=== PATIENT | male | born 1960 | race Two or more races ===

== ENCOUNTER → 2016-07-11 | Outpatient (CLI) | payer MEDICARE ==
[~2016-07-11] MED LIST: ALDACTONE100 MG ORAL; FEOSOL325 MG PO; FOLIC ACID1 MG ORAL; FUROSEMIDE40 MG ORAL; GLIMEPIRIDE1 MG ORAL; HEPARIN 5000 UNIT; INDERAL10 MG PO; JANUMET 50-1,01 EACH ORAL; LACTULOSE20 GM/301 PO; MULTIVITAMINS1 EAC2 ORAL; OXYCODONE-IBUP1 EACH ORAL; PROPRANOLOL HCL10 MG ORAL; SPIRONOLACTONE100 MG ORAL; VITAMIN B-1100 MG ORAL; XIFAXAN550 MG ORAL; ZOFRAN4 MG ORAL
--- NOTE | 2016-07-11 14:50 | GI Progress Note ---
Assessment/Plan Problems: (1) Cirrhosis ICD Codes: K74.60 - Cirrhosis SNOMED: 73635072 (2) Ascites ICD Codes: R18.8 - Ascites SNOMED: 408033025 (3) Anemia ICD Codes: D64.9 - Anemia SNOMED: 939986909 (4) Varices of esophagus determined by endoscopy ICD Codes: I85.00 - Esophageal varices without bleeding SNOMED: 61031688, 941630737 (5) Vitatmin D deficiency (6) Elevated ammonia Status: doing well, stable Status Narrative Seen with Dr. Mendez. Assessment/Plan lab results from Dr. Lundy reviewed. ordered abdominal U/S 07/17/16 RTC post imaging study Subjective Subjective denies any GI symptoms Objective T 98.1 BP 118/78 P75 WT 182 lbs Weight (Pounds): 182 General Appearance: no apparent distress, alert Cardiovascular: regular rhythm Respiratory/Chest: no respiratory distress Abdominal Exam: normal bowel sounds, non tender, soft Extremities: normal range of motion Objective Endoscopy Procedure Note Indication for Procedure: esoph varices Procedures Performed: EGD Operative Findings/Diagnosis: sabinotiiJOSHUA Bergman - Mar 01, 2016 09:01 Arabella Ferrari N.P. Jul 11, 2016 14:50
[2016-07-11 15:29] VITALS: BP 118/78
== END | disposition home or self-care (01) ==
LOC: PAN 14:13
DX: K74.60 Unspecified cirrhosis of liver (principal); R18.8 Other ascites; D64.9 Anemia, unspecified; I85.00 Esophageal varices without bleeding; E55.9 Vitamin D deficiency, unspecified
CPT/HCPCS: 99211

== ENCOUNTER → 2016-07-17 | Outpatient (CLI) | payer MEDICARE ==
--- NOTE | 2016-07-17 13:48 | Diagnostic Imaging Report ---
Indication:Abdominal pain Technique: Grayscale and duplex Doppler imaging of the abdomen performed. Comparison: None Findings: There are multiple gallstones within the gallbladder lumen. Sonographic Pacheco's is negative per technologist. The liver has a somewhat coarsened echotexture. The demonstrated part of the pancreas, aorta and IVC, both kidneys, spleen appear unremarkable. There is no biliary ductal dilatation identified. Doppler evaluation of the main portal vein shows patency. There is no ascites. No hydronephrosis seen. Impression: Cholelithiasis
== END | disposition home or self-care (01) ==
LOC: ULS 10:01
DX: K80.20 Calculus of gallbladder without cholecystitis without obstruction (principal)
CPT/HCPCS: 76700

== ENCOUNTER 2016-12-24 10:01 | Outpatient (CLI) | payer MEDICARE ==
[2016-12-24 10:26] VITALS: BP 138/85
--- NOTE | 2016-12-24 10:48 | GI Progress Note ---
Assessment/Plan Problems: (1) Obesity ICD Codes: E66.9 - Obesity, unspecified SNOMED: 776710607 (2) Gall stone ICD Codes: K80.20 - Calculus of gallbladder without cholecystitis without obstruction SNOMED: 105447645 (3) Varices of esophagus determined by endoscopy ICD Codes: I85.00 - Esophageal varices without bleeding SNOMED: 41715572, 883164217 (4) Cirrhosis ICD Codes: K74.60 - Cirrhosis SNOMED: 47930823 (5) Ascites ICD Codes: R18.8 - Ascites SNOMED: 564879999 (6) Anemia ICD Codes: D64.9 - Anemia SNOMED: 519522964 (7) H/O ETOH abuse ICD Codes: F10.10 - H/O ETOH abuse SNOMED: 657805134 Status: stable Status Narrative Seen with Dr. Mendez. Assessment/Plan Endoscopy Procedure Note Indication for Procedure: esoph varices Procedures Performed: EGD Operative Findings/Diagnosis: gastritis JOSHUA MENDEZ - Mar 01, 2016 09:01 Service Date: 07/17/16 Procedure: US ABD Complete Indication:Abdominal pain Impression: Cholelithiasis RTC x 6 months for repeat EGD. Instructed patient to lose 10 lbs by next visit. Subjective Subjective No GI symptoms at this time. Labs drawn in September. abdominal U/S showed gallstones Objective Last 24 Hour Vital Signs Date Time Temp Pulse Resp B/P Pulse Ox O2 Delivery O2 Flow Rate FiO2 12/24/16 10:26 98.0 85 16 138/85 Weight (Pounds): 191 General Appearance: no apparent distress, alert, obese Cardiovascular: normal rate, regular rhythm Respiratory/Chest: lungs clear, normal breath sounds, no respiratory distress Abdominal Exam: normal bowel sounds, non tender, soft Extremities: normal range of motion, non-tender Arabella Ferrari N.P. Dec 24, 2016 10:48
== END 2016-12-24 10:45 | disposition home or self-care (01) ==
LOC: PAN 10:01
DX: E66.9 Obesity, unspecified (principal); K80.20 Calculus of gallbladder without cholecystitis without obstruction; I85.00 Esophageal varices without bleeding; K74.60 Unspecified cirrhosis of liver; R18.8 Other ascites; D64.9 Anemia, unspecified; F10.10 Alcohol abuse, uncomplicated
CPT/HCPCS: 99211

== ENCOUNTER 2017-01-11 14:17 | Inpatient (IN) | payer MEDICARE ==
[~2017-01-11] VITALS: Ht 165.1 cm; Wt 83.9 kg
[2017-01-11 14:42] VITALS: BP 134/87
[2017-01-11] MEDS ORDERED: Famotidine 20 MG/ 2ML VIAL IVP ONE (15:00)
--- NOTE | 2017-01-11 15:09 | Emergency Room Report ---
History of Present Illness General Chief Complaint: Abdominal Pain Source: Patient Present Illness HPI The patient presents unable to keep anything down. He's been vomiting for several days of. He vomits whatever he some denies any blood or coffee grounds. He also is moving her his bowels with brown stool but very scant amount. He denies any diarrhea. This began after he had some alcohol 4 days ago at a green party. He denies confusion or fevers. There's no chest pain. He does have an indigestion feelings in his epigastric area it radiates somewhat into his chest. He also feels fullness in his abdomen and has early satiety and loss of appetite. He denies any dysuria. There's no shortness of breath or cough. No sore throat. He has no headache or confusion. He denies pain. Prior ultrasounds show gall stones. There is no RUQ pain. Treated in the past for ascites and cirrhosis. No rashes. Allergies: Coded Allergies: No Known Allergies (Unverified , 10/20/12) Patient History Past Medical History: see triage record Social History: Reports: alcohol use - Prior, Denies: smoking Social History Narrative family Reviewed Nursing Documentation: PMH: Agreed, PSxH: Agreed Nursing Documentation-PMH Hx Cardiac Problems: No Hx Diabetes: Yes Hx Cancer: No Hx Gastrointestinal Problems: Yes Hx Neurological Problems: No Review of Systems All Other Systems: negative except mentioned in HPI Physical Exam Vital Signs Date Time Temp Pulse Resp B/P (MAP) Pulse Ox O2 Delivery O2 Flow Rate FiO2 01/11/17 14:31 100.0 92 15 135/84 99 Room Air Sp02 EP Interpretation: reviewed, normal General Appearance: well appearing, no apparent distress, GCS 15 Head: normocephalic Eyes: bilateral eye normal inspection, bilateral eye PERRL, bilateral eye other - Pterygium ENT: moist mucus membranes Neck: supple Respiratory: lungs clear, normal breath sounds Cardiovascular #1: regular rate, rhythm Cardiovascular #2: 2+ radial (R) Gastrointestinal: normal inspection, normal bowel sounds, no mass, no guarding , no rebound, distended, tenderness - Epigastric Musculoskeletal: back normal, gait/station normal, normal range of motion Neurologic: alert, oriented x3, other - No asterixis Psychiatric: mood/affect normal Skin: normal inspection, warm/dry, other - No collar Medical Decision Making Diagnostic Impression: Primary Impression: Pancreatitis Qualified Codes: K85.20 - Alcohol induced acute pancreatitis without necrosis or infection Additional Impressions: Cirrhosis Qualified Codes: K70.30 - Alcoholic cirrhosis of liver without ascites Gallstones ER Course The patient presents with unable to keep anything down and abdominal fullness with epigastric discomfort. Differential includes ascites, gastritis, GERD, peptic ulcer disease, pancreatitis amongst others. Also we need to evaluate for possible electrolyte imbalance. There is no fluid wave at this time although abdomen slightly distended. It's a nonsurgical abdomen. The patient will receive IV medications however we will refrain from aggressive IV hydration because he has a tendency to develop ascites. He's not tachycardic nor toxic at this time. An EKG will be checked to rule out cardiac cause. There is no evidence of hepatic encephalopathy at this time however ammonia will be checked. Labs are significant for normal white count and H&H. Lipase is extremely elevated. This is consistent with a diagnosis of pancreatitis. The patient denies any pain at this time however needs to be admitted to the hospital. In addition to that and ultrasound will be obtained. No coagulopathy. Bicarb and calcium normal. US without gall bladder dilatation or pericolic fluid. Not surgical problem. Most likely related to recent alcohol ingestion. Patient improved. Denies pain. Still with full feeling in abdomen. Admit med Dr. Lundy. Laboratory Tests Test 01/11/17 15:13 White Blood Count 5.4 K/UL (4.8-10.8) Red Blood Count 4.16 M/UL (4.70-6.10) L Hemoglobin 14.6 G/DL (14.2-18.0) Hematocrit 41.3 % (42.0-52.0) L Mean Corpuscular Volume 99 FL (80-99) Mean Corpuscular Hemoglobin 35.1 PG (27.0-31.0) H Mean Corpuscular Hemoglobin Concent 35.4 G/DL (32.0-36.0) Red Cell Distribution Width 12.4 % (11.6-14.8) Platelet Count 146 K/UL (150-450) L Mean Platelet Volume 9.2 FL (6.5-10.1) Neutrophils (%) (Auto) 83.6 % (45.0-75.0) H Lymphocytes (%) (Auto) 7.8 % (20.0-45.0) L Monocytes (%) (Auto) 7.3 % (1.0-10.0) Eosinophils (%) (Auto) 0.2 % (0.0-3.0) Basophils (%) (Auto) 1.2 % (0.0-2.0) Prothrombin Time 10.6 SEC (9.30-11.50) Prothrombin Time INR 1.0 (0.9-1.1) Urine Color Yellow Urine Appearance Clear Urine pH 7 (4.5-8.0) Urine Specific [place] 1.005 (1.005-1.035) Urine Protein 1+ (NEGATIVE) H Urine Glucose (UA) Negative (NEGATIVE) Urine Ketones Negative (NEGATIVE) Urine Occult Blood Negative (NEGATIVE) Urine Nitrite Negative (NEGATIVE) Urine Bilirubin 2+ (NEGATIVE) H Urine Ictotest Positive Urine Urobilinogen 4 MG/DL (0.0-1.0) H Urine Leukocyte Esterase 1+ (NEGATIVE) H Urine RBC 0-2 /HPF (0 - 0) H Urine WBC 0-2 /HPF (0 - 0) Urine Squamous Epithelial Cells None /LPF (NONE/OCC) Urine Bacteria Occasional /HPF (NONE) Sodium Level 131 mEQ/L (135-145) L Potassium Level 4.3 mEQ/L (3.4-4.9) Chloride Level 95 mEQ/L (98-107) L Carbon Dioxide Level 24 mEQ/L (20-30) Anion Gap 12 (5-15) Blood Urea Nitrogen 8 mg/dL (7-23) Creatinine 0.7 mg/dL (0.7-1.2) Estimate Glomerular Filtration Rate > 60 mL/min (>60) Glucose Level 231 mg/dL (74-106) H Calcium Level 10.0 mg/dL (8.6-10.2) Total Bilirubin 6.2 mg/dL (0.0-1.2) H Direct Bilirubin 4.2 mg/dL (0.1-0.3) H Aspartate Amino Transferase (AST) 139 U/L (5-40) H Alanine Aminotransferase (ALT) 79 U/L (3-41) H Alkaline Phosphatase 206 U/L (40-129) H Ammonia 49 umol/L (16-60) Total Creatine Kinase 50 U/L (38-174) Total Protein 8.1 g/dL (6.6-8.7) Albumin 3.5 g/dL (3.5-5.2) Globulin 4.6 g/dL Albumin/Globulin Ratio 0.7 (1.0-2.7) L Lipase 8130 U/L (< 60) H EKG Diagnostic Results Rate: normal Rhythm: NSR ST Segments: no acute changes Rhythm Strip Diag. Results EP Interpretation: yes Rhythm: NSR, no PVC's, no ectopy Chest X-Ray Diagnostic Results Chest X-Ray Diagnostic Results : Chest X-Ray Ordered: Yes # of Views/Limited/Complete: 1 View Indication: Other EP Interpretation: Yes Interpretation: no consolidation, no effusion, no pneumothorax, no acute cardiopulmonary disease Impression: No acute disease Interpreting ER Provider: Signed New Sepulveda MD Other X-Ray Diagnostic Results Other X-Ray Diagnostic Results : X-Ray ordered: abd # of Views/Limited Vs Complete: 2 View Indication: Other EP Interpretation: Yes Interpretation: nonspecific bowel gas, no sbo, other - RUQ calcifications Impression: Other Interpreting ER Provider: Signed New Sepulveda MD CT/MRI/US Diagnostic Results CT/MRI/US Diagnostic Results : Imaging Test Ordered: US abd Impression gall stones, thickened CBD without obstruction. Unable to vis pancreas Last Vital Signs Date Time Temp Pulse Resp B/P (MAP) Pulse Ox O2 Delivery O2 Flow Rate FiO2 01/11/17 22:10 99.5 73 18 130/84 98 Room Air 72 Status: improved Disposition: ADMITTED INPATIENT Condition: Serious New Sepulveda M.D. Jan 11, 2017 15:09
[2017-01-11 15:25] LABS: BASOPHILS % (AUTO) 1.2 % (0.0-2.0); EOSINOPHILS % (AUTO) 0.2 % (0.0-3.0); LYMPHOCYTES % (AUTO) 7.8 % (20.0-45.0); MEAN CORPUSCULAR HEMOGLOBIN 35.1 PG (27.0-31.0); MEAN CORPUSCULAR HGB CONC 35.4 G/DL (32.0-36.0); MEAN CORPUSCULAR VOLUME 99 FL (80-99); MEAN PLATELET VOLUME 9.2 FL (6.5-10.1); MONOCYTES % (AUTO) 7.3 % (1.0-10.0); NEUTROPHILS % (AUTO) 83.6 % (45.0-75.0); PLATELET COUNT 146 K/UL (150-450); RED BLOOD COUNT 4.16 M/UL (4.70-6.10); RED CELL DISTRIBUTION WIDTH 12.4 % (11.6-14.8); WHITE BLOOD COUNT 5.4 K/UL (4.8-10.8)
[2017-01-11 15:36] LABS: APPEARANCE,URINE CLEAR; KETONES,URINE NEGATIVE (NEGATIVE); LEUKOCYTE ESTERASE ,URINE 1+ (NEGATIVE); NITRITE,URINE NEGATIVE (NEGATIVE); PH,URINE 7 (4.5-8.0); PROTEIN,URINE 1+ (NEGATIVE); UROBILINOGEN,URINE 4 MG/DL (0.0-1.0)
[2017-01-11 15:38] LABS: PROTHROMBIN TIME 10.6 SEC (9.30-11.50)
[2017-01-11 15:39] LABS: ICTOTEST POSITIVE
[2017-01-11 15:40] LABS: AMMONIA 49 umol/L (16-60)
[2017-01-11 15:41] LABS: ALANINE AMINOTRANSFERASE 79 U/L (3-41); ALBUMIN/GLOBULIN RATIO 0.7 (1.0-2.7); ANION GAP 12 (5-15); ASPARTATE AMINO TRANSFERASE 139 U/L (5-40); CARBON DIOXIDE 24 mEQ/L (20-30); CHLORIDE 95 mEQ/L (98-107); CREATININE 0.7 mg/dL (0.7-1.2); GLOMERULAR FILTRATION RATE > 60 mL/min (>60); HEMOLYSIS 15; POTASSIUM 4.3 mEQ/L (3.4-4.9); SODIUM 131 mEQ/L (135-145); TOTAL PROTEIN 8.1 g/dL (6.6-8.7)
[2017-01-11 15:50] LABS: RBC,URINE 0-2 /HPF (0 - 0); WBC,URINE 0-2 /HPF (0 - 0)
[2017-01-11 15:51] LABS: BACTERIA,URINE OCCASIONAL /HPF
[2017-01-11 16:02] LABS: BILIRUBIN,DIRECT 4.2 mg/dL (0.1-0.3)
[2017-01-11 16:05] LABS: LIPASE 8130 U/L (< 60)
[2017-01-11 17:30] VITALS: BP 140/75
[2017-01-11] MEDS ORDERED: Morphine Sulfate 2mg/ml Inj IVP PRN (19:15)
[2017-01-11 20:00] VITALS: BP 130/70
[2017-01-11 21:00] VITALS: BP 130/84
[2017-01-11] MEDS: NS w/KCl 20mEq 1,000 ML IV SCH (21:59)
[2017-01-11 22:00] VITALS: BP 138/76
[2017-01-11] MEDS: Heparin 5000 units/ml inj SUBQ SCH (22:04)
[2017-01-12] VITALS (7 sets, daily range): BP systolic 120–155; BP diastolic 69–83
[2017-01-12 07:40] LABS: BASOPHILS % (AUTO) 1.1 % (0.0-2.0); EOSINOPHILS % (AUTO) 0.5 % (0.0-3.0); LYMPHOCYTES % (AUTO) 11.2 % (20.0-45.0); MEAN CORPUSCULAR HEMOGLOBIN 34.3 PG (27.0-31.0); MEAN CORPUSCULAR HGB CONC 33.9 G/DL (32.0-36.0); MEAN CORPUSCULAR VOLUME 101 FL (80-99); MEAN PLATELET VOLUME 9.6 FL (6.5-10.1); NEUTROPHILS % (AUTO) 77.3 % (45.0-75.0); PLATELET COUNT 151 K/UL (150-450); RED BLOOD COUNT 4.03 M/UL (4.70-6.10); RED CELL DISTRIBUTION WIDTH 12.1 % (11.6-14.8); WHITE BLOOD COUNT 6.6 K/UL (4.8-10.8)
--- NOTE | 2017-01-12 07:41 | Consultation ---
History of Present Illness General Date patient seen: Jan 12, 2017 Time patient seen: 07:00 Chief Complaint: Abdominal Pain Referring physician: dr Lundy Reason for Consultation: inpatient management Present Illness HPI 56 y/old male with PMH of presented with c/o of vomiting for few days. Patient was unable to keep food or liquids down. Patient denies blood or coffee ground emesis, any blood or coffee grounds. Patient had BM small amount, no blood in stool , no diarrhea. Patient also reported abdominal discomfort in epigastric area, occasionally radiating to his chest Abdominal discomfort with feeling of early satiety, poor appetite. No dysuria, no blood in urine, no back pain, Patient denied chest pain, SOB, dizziness, palpitations, headache patient denied fevers, chills Prior abdominal US in [facility] revealed gallstones, Patient denied RUQ pain Workup in ED revealed elevated lipase -8130 elevated LFT AST-139, ALT-79, Alk phos-2-6, T bili-6.2, D bili-4.2 BS -231 Na -131 Ammonia WNL no leukocytosis, stable HH patient was admitted for further management Allergies: Coded Allergies: No Known Allergies (Unverified , 10/20/12) Medication History Scheduled Lactulose (Lactulose*), 30 ML PO TID, (Reported) Rifaximin* (Xifaxan*), 550 MG ORAL TWICE A DAY, (Reported) Sitagliptin Phos/Metformin Hcl (Janumet 50-1,000 Mg Tablet), 1 TAB ORAL TWICE A DAY, (Reported) Patient History Healthcare decision maker Self Resuscitation status Full Code Advanced Directive on File Past Medical/Surgical History Past Medical/Surgical History: (1) Anemia (2) Ascites (3) Coagulopathy (4) Helicobacter pylori (H. pylori) (5) Post paracentesis (6) Varices of esophagus determined by endoscopy (7) H/O ETOH abuse (8) Gall stone (9) Obesity (10) Cirrhosis (11) Elevated ammonia (12) Vitatmin D deficiency Review of Systems Constitutional: Reports: weakness Eye: Reports: no symptoms ENT: Reports: no symptoms Respiratory: Reports: no symptoms Cardiovascular: Reports: no symptoms Gastrointestinal: Reports: see HPI Genitourinary: Reports: no symptoms Musculoskeletal: Reports: no symptoms Skin: Reports: no symptoms Psychiatric: Reports: no symptoms Neurological: Reports: no symptoms Endocrine: Reports: no symptoms Hematologic/Lymphatic: Reports: anemia Physical Exam General Appearance: no apparent distress, alert Lines, tubes and drains: peripheral HEENT: normocephalic, atraumatic, anicteric, mucous membranes moist Neck: non-tender, supple Respiratory/Chest: chest wall non-tender, lungs clear - with moderate air exchange , no respiratory distress, no accessory muscle use Cardiovascular/Chest: normal peripheral pulses, normal rate, regular rhythm, no JVD Abdomen: normal bowel sounds, non tender, soft Neurologic: no motor/sensory deficits, alert, responsive Musculoskeletal: normal muscle bulk Last 24 Hour Vital Signs Date Time Temp Pulse Resp B/P (MAP) Pulse Ox O2 Delivery O2 Flow Rate FiO2 01/12/17 04:00 99.9 77 17 120/72 97 Room Air 01/12/17 00:00 99.9 18 124/82 98 Room Air 01/11/17 22:10 99.5 73 18 130/84 98 Room Air 72 01/11/17 22:00 97.9 72 17 138/76 97 Room Air 01/11/17 21:00 99.5 73 18 130/84 98 Room Air 01/11/17 20:00 98.0 70 16 130/70 98 Room Air 01/11/17 17:30 97.9 74 15 140/75 98 Room Air 01/11/17 14:42 97.9 78 15 134/87 99 Room Air 01/11/17 14:31 100.0 92 15 135/84 99 Room Air Laboratory Tests Test 01/11/17 15:13 01/12/17 05:20 White Blood Count 5.4 K/UL (4.8-10.8) Pending Red Blood Count 4.16 M/UL (4.70-6.10) L Pending Hemoglobin 14.6 G/DL (14.2-18.0) Pending Hematocrit 41.3 % (42.0-52.0) L Pending Mean Corpuscular Volume 99 FL (80-99) Pending Mean Corpuscular Hemoglobin 35.1 PG (27.0-31.0) H Pending Mean Corpuscular Hemoglobin Concent 35.4 G/DL (32.0-36.0) Pending Red Cell Distribution Width 12.4 % (11.6-14.8) Pending Platelet Count 146 K/UL (150-450) L Pending Mean Platelet Volume 9.2 FL (6.5-10.1) Pending Neutrophils (%) (Auto) 83.6 % (45.0-75.0) H Pending Lymphocytes (%) (Auto) 7.8 % (20.0-45.0) L Pending Monocytes (%) (Auto) 7.3 % (1.0-10.0) Pending Eosinophils (%) (Auto) 0.2 % (0.0-3.0) Pending Basophils (%) (Auto) 1.2 % (0.0-2.0) Pending Prothrombin Time 10.6 SEC (9.30-11.50) Prothromb Time International Ratio 1.0 (0.9-1.1) Urine Color Yellow Urine Appearance Clear Urine pH 7 (4.5-8.0) Urine Specific [place] 1.005 (1.005-1.035) Urine Protein 1+ (NEGATIVE) H Urine Glucose (UA) Negative (NEGATIVE) Urine Ketones Negative (NEGATIVE) Urine Occult Blood Negative (NEGATIVE) Urine Nitrite Negative (NEGATIVE) Urine Bilirubin 2+ (NEGATIVE) H Urine Ictotest Positive Urine Urobilinogen 4 MG/DL (0.0-1.0) H Urine Leukocyte Esterase 1+ (NEGATIVE) H Urine RBC 0-2 /HPF (0 - 0) H Urine WBC 0-2 /HPF (0 - 0) Urine Squamous Epithelial Cells None /LPF (NONE/OCC) Urine Bacteria Occasional /HPF (NONE) Sodium Level 131 mEQ/L (135-145) L Pending Potassium Level 4.3 mEQ/L (3.4-4.9) Pending Chloride Level 95 mEQ/L (98-107) L Pending Carbon Dioxide Level 24 mEQ/L (20-30) Pending Anion Gap 12 (5-15) Blood Urea Nitrogen 8 mg/dL (7-23) Pending Creatinine 0.7 mg/dL (0.7-1.2) Pending Estimat Glomerular Filtration Rate > 60 mL/min (>60) Pending Glucose Level 231 mg/dL (74-106) H Pending Calcium Level 10.0 mg/dL (8.6-10.2) Pending Total Bilirubin 6.2 mg/dL (0.0-1.2) H Pending Direct Bilirubin 4.2 mg/dL (0.1-0.3) H Aspartate Amino Transf (AST/SGOT) 139 U/L (5-40) H Pending Alanine Aminotransferase (ALT/SGPT) 79 U/L (3-41) H Pending Alkaline Phosphatase 206 U/L (40-129) H Pending Ammonia 49 umol/L (16-60) Total Creatine Kinase 50 U/L (38-174) Total Protein 8.1 g/dL (6.6-8.7) Pending Albumin 3.5 g/dL (3.5-5.2) Pending Globulin 4.6 g/dL Pending Albumin/Globulin Ratio 0.7 (1.0-2.7) L Lipase 8130 U/L (< 60) H Pending Phosphorus Level Pending Magnesium Level Pending Amylase Level Pending Height (Feet): 5 Height (Inches): 5.00 Weight (Pounds): 185 Medications Current Medications Medications (Trade) Dose Ordered Sig/Nikia Route PRN Reason Start Time Stop Time Status Last Admin Dose Admin Acetaminophen (Tylenol) 650 mg Q6H PRN ORAL Mild Pain/Temp > 100.5 01/11/17 19:15 02/10/17 19:14 Heparin Sodium (Porcine) (Heparin 5000 units/ml) 5,000 units EVERY 12 HOURS SUBQ 01/11/17 21:00 02/10/17 20:59 01/11/17 22:04 Lactulose (Cephulac) 20 gm THREE TIMES A DAY ORAL 01/12/17 09:00 02/11/17 08:59 Morphine Sulfate (Morphine Sulfate) 2 mg Q4H PRN IVP Severe Pain (Pain Scale 7-10) 01/11/17 19:15 01/18/17 19:14 Ondansetron HCl (Zofran) 4 mg Q4HR PRN IVP Nausea & Vomiting 01/11/17 19:15 02/10/17 19:14 Rifaximin (Xifaxan) 550 mg EVERY 12 HOURS ORAL 01/11/17 21:00 01/18/17 20:59 01/11/17 21:58 Sodium Chloride 1,000 ml @ 75 mls/hr [id number] IV 01/11/17 20:15 02/10/17 20:14 01/11/17 21:59 Assessment/Plan Assessment/Plan ASSESSMENT acute pancreatitis cholelithiasis transaminitis possible gallstones pancreatitis H pylori infection, s/p Rx cirrhosis esophageal varices ETOH dependency hyponatremia PLAN OF CARE MS floor IVF CL diet as tolerated a/emetic prn abdominal US and abdominal X ray GI eval trend lipase, amylase, LFT s/p Rx for H pylori , last result negative HH stable ammonia WNL, continue lactulose and Rifaximin for now, further management as per GI recommendations pain management monitor lytes and replace as needed counsellors on abstinence from ETOH DVT GI prophylaxis case discussed and evaluated by supervising physician Anshul (Lilli),Taina CAREY Jan 12, 2017 07:41
[2017-01-12 08:35] LABS: ALANINE AMINOTRANSFERASE 78 U/L (3-41); ALBUMIN/GLOBULIN RATIO 0.6 (1.0-2.7); ANION GAP 15 (5-15); ASPARTATE AMINO TRANSFERASE 115 U/L (5-40); CALCIUM 9.2 mg/dL (8.6-10.2); CARBON DIOXIDE 22 mEQ/L (20-30); CHLORIDE 96 mEQ/L (98-107); CREATININE 0.7 mg/dL (0.7-1.2); GLOMERULAR FILTRATION RATE > 60 mL/min (>60); HEMOLYSIS 0; MAGNESIUM 1.6 mg/dL (1.7-2.5); PHOSPHORUS 2.7 mg/dL (2.5-4.8); POTASSIUM 4.4 mEQ/L (3.4-4.9); SODIUM 133 mEQ/L (135-145); TOTAL PROTEIN 7.6 g/dL (6.6-8.7)
[2017-01-12 08:50] LABS: AMYLASE 636 U/L (10-110)
[2017-01-12 08:51] LABS: LIPASE 1039 U/L (< 60)
[2017-01-12] MEDS: Heparin 5000 units/ml inj SUBQ SCH ×3 (09:00→21:00)
[2017-01-12 09:22] LABS: BILIRUBIN,DIRECT 2.1 mg/dL (0.1-0.3)
[2017-01-12] MEDS: Lactulose 20gm/30ml UDC ORAL SCH ×3 (09:23→17:45)
[2017-01-12] MEDS: NS w/KCl 20mEq 1,000 ML IV SCH ×2 (09:27→22:46)
--- NOTE | 2017-01-12 10:57 | Diagnostic Imaging Report ---
Indication: Dyspnea Comparison: 02/01/13 A single view chest radiograph was obtained. Findings: There are multiple old rib fractures bilaterally. The bones are osteopenic. Heart size is normal. Lungs are essentially clear. Impression: No acute disease
--- NOTE | 2017-01-12 10:58 | Diagnostic Imaging Report ---
Indication: Abdominal pain Comparison: None Single view of the abdomen obtained Multiple clustered stones in the right upper quadrant of abdomen likely represent gallstones. Bowel gas pattern is nonspecific. Degenerative changes in the lower lumbar spine and both hips appear narrowed consistent with osteoarthritis. Impression: Cholelithiasis
--- NOTE | 2017-01-12 11:54 | Diagnostic Imaging Report ---
Indication:Abdominal pain Technique: Grayscale and duplex Doppler imaging of the abdomen performed. Comparison: None Findings: Gallstones noted. There is dilatation of the gallbladder present. Please correlate clinically for cholecystitis. The liver is unremarkable. Pancreas and aorta are not seen due to bowel gas. There is no hydronephrosis or ascites. Spleen is normal in size. No biliary ductal dilatation identified with a CBD diameter of 4 mm. Impression: Cholelithiasis. Cholecystitis not excluded. Please correlate clinically.
--- NOTE | 2017-01-12 14:43 | History & Physical ---
History and Physical History & Physicial Dictated for Int Med-Dr Lundy no. [id number]. LSOANE RONDON Jan 12, 2017 14:43
--- NOTE | 2017-01-12 15:26 | General Progress Note ---
Progress Note Progress Note Chart reviewed, pt examined, consult dictated. Impression: cholelithiasis, jaundice, resolving pancreatitis. He will need an MRCP and a GI evaluation. Savage Arriaza MD Jan 12, 2017 15:26
[2017-01-12] MEDS: NovoLOG Insulin Flexpen SUBQ SCH ×2 (16:30→21:00)
[2017-01-13 00:04] VITALS: BP 120/76
--- NOTE | 2017-01-13 03:16 | History and Physical Report ---
DATE OF ADMISSION: 01/11/2017 CHIEF COMPLAINT: The patient is a 56-year-old male with history of alcoholic pancreatitis, who presents with chief complaint of nausea with vomiting. HISTORY OF PRESENT ILLNESS: Began two weeks prior to admission. The patient states he has 4 years sobriety. The patient drank alcohol 2 weeks ago. The patient began to have nausea with vomiting. The patient states nausea and vomiting has increased since 01/06/2017. The patient is unable to tolerate by mouth liquids or solids. The patient presented to [place] emergency room. The patient was found to have lipase of 8000. The patient is admitted with acute on chronic alcoholic pancreatitis. PAST MEDICAL HISTORY: Significant for, 1. Alcoholic pancreatitis. 2. Alcoholic cirrhosis of the liver. 3. Ascites. 4. History of alcohol abuse. 5. History of esophageal varices. PAST SURGICAL HISTORY: Significant for cholecystectomy. CURRENT MEDICATIONS: 1. Lactulose 20 g p.o. three times daily. 2. Xifaxan 550 mg p.o. twice daily. 3. Janumet mg one tablet p.o. twice daily. ALLERGIES: No known drug allergies. SOCIAL HISTORY: The patient is and is disabled. The patient denies tobacco use. The patient admits to previous alcohol use, however, the patient states he has been sober for 4 years. The patient did drink 2 weeks previously. The patient denies other drug abuse. REVIEW OF SYSTEMS: Constitutional: The patient denies weight loss or weight gain. The patient denies fevers or chills. HEENT: The patient denies ear or throat pain. The patient denies headache. Cardiovascular: The patient denies palpitations or chest pain. Chest: The patient denies wheezes or shortness of breath. Abdominal: The patient complains of nausea with vomiting as above. The patient denies diarrhea or constipation. Genitourinary: The patient denies dysuria or increased frequency of urination. Neuromuscular: The patient denies seizures or generalized weakness. PHYSICAL EXAMINATION: VITAL SIGNS: Temperature 97.9 degrees, respirations 17, pulse 72, and blood pressure 138/76. GENERAL: The patient is well-developed, well-nourished male, in no apparent distress. HEENT: Eyes, pupils are equal and responsive to light and accommodation. Extraocular movements are intact. NECK: Supple without lymphadenopathy. CHEST: Lungs are clear to auscultation bilaterally without wheezes or rales. CARDIOVASCULAR: Regular rhythm and rate. S1 and S2 normal without murmurs, rubs, or gallops. ABDOMEN: Soft and distended with decreased bowel sounds. There is no fluid wave present. There is no evidence of rebound or guarding noted. No evidence of hepatosplenomegaly. EXTREMITIES: Negative for clubbing, cyanosis, or edema. RECTAL: Refused. GENITAL: Refused. NEUROLOGIC: Cranial nerves II to XII are grossly intact without focal deficits. Motor strength is 5/5 bilaterally. Deep tendon reflexes are 2+ plantar. LABORATORY AND DIAGNOSTIC STUDIES: WBC 5.2, hemoglobin 14.6, hematocrit 41.3, and platelets are 146,000. Sodium 131, potassium 4.3, chloride 95, CO2 24, BUN 8, creatinine 0.7, and glucose 231. Total bilirubin elevated at 6.2 and direct bilirubin elevated at 4.2. AST elevated at 139, ALT elevated at 79, and alkaline phosphatase elevated at 206. Lipase elevated at 8130. Serum amylase elevated at 636. An abdominal ultrasound revealed cholelithiasis. ASSESSMENT: This is a 56-year-old male with: 1. Nausea with vomiting. 2. Pancreatitis. 3. Cholelithiasis. 4. History of cirrhosis. 5. History of ascites. 6. Alcohol abuse. 7. Esophageal varices. 8. Diabetes type 2. TREATMENT: 1. Nausea with vomiting. A Gastroenterology consultation has been obtained with Dr. Flex Mendez. Nausea and vomiting is probably secondary to acute on chronic pancreatitis. 2. Pancreatitis, may be secondary to gallstone pancreatitis. The patient has elevated liver function tests with gallstones noted on the abdominal ultrasound. The patient states he has a history of cholecystectomy, however, ultrasound reveals cholelithiasis. A General Surgery consultation has been obtained with Dr. Rose. 3. History of cirrhosis of the liver. 4. History of abdominal ascites. 5. History of alcohol abuse. 6. History of esophageal varices. 7. Diabetes type 2. The patient has been placed on a NovoLog sliding scale. Leandro Meza M.D. DR: ELISABETH JOB#: [id number] CC:
[2017-01-13 04:00] VITALS: BP_SYST 115
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
[2017-01-13] MEDS: NovoLOG Insulin Flexpen SUBQ SCH ×4 (06:30→21:00)
[2017-01-13 07:26] LABS: BASOPHILS % (AUTO) 1.3 % (0.0-2.0); EOSINOPHILS % (AUTO) 1.5 % (0.0-3.0); LYMPHOCYTES % (AUTO) 17.5 % (20.0-45.0); MEAN CORPUSCULAR HEMOGLOBIN 36.7 PG (27.0-31.0); MEAN CORPUSCULAR HGB CONC 35.8 G/DL (32.0-36.0); MEAN CORPUSCULAR VOLUME 103 FL (80-99); MEAN PLATELET VOLUME 9.2 FL (6.5-10.1); MONOCYTES % (AUTO) 9.2 % (1.0-10.0); NEUTROPHILS % (AUTO) 70.6 % (45.0-75.0); PLATELET COUNT 128 K/UL (150-450); RED BLOOD COUNT 3.56 M/UL (4.70-6.10); RED CELL DISTRIBUTION WIDTH 12.3 % (11.6-14.8); WHITE BLOOD COUNT 7.1 K/UL (4.8-10.8)
[2017-01-13 07:27] LABS: ALANINE AMINOTRANSFERASE 49 U/L (3-41); ALBUMIN/GLOBULIN RATIO 0.7 (1.0-2.7); ANION GAP 10 (5-15); ASPARTATE AMINO TRANSFERASE 45 U/L (5-40); CALCIUM 8.8 mg/dL (8.6-10.2); CARBON DIOXIDE 25 mEQ/L (20-30); CHLORIDE 97 mEQ/L (98-107); CREATININE 0.7 mg/dL (0.7-1.2); GLOMERULAR FILTRATION RATE > 60 mL/min (>60); HEMOLYSIS 10; SODIUM 132 mEQ/L (135-145); TOTAL PROTEIN 7.4 g/dL (6.6-8.7)
[2017-01-13 07:28] LABS: AMYLASE 206 U/L (10-110)
[2017-01-13 07:48] LABS: LIPASE 554 U/L (< 60)
[2017-01-13 07:54] LABS: BILIRUBIN,DIRECT 1.1 mg/dL (0.1-0.3)
[2017-01-13 08:00] VITALS: BP 119/71
--- NOTE | 2017-01-13 08:30 | Consultation ---
DATE OF CONSULTATION: 01/12/2017 GASTROENTEROLOGY CONSULTATION CONSULTING PHYSICIAN: Shasha Monae M.D. CHIEF COMPLAINT: I was asked to see this patient by Dr. Jared Atkinson for evaluation of gastrostomy tube placement. HISTORY OF PRESENT ILLNESS: The patient is an unfortunate man with advanced cognitive dysfunction due to Parkinson disease and other medical problems, who was brought to the hospital due to poor oral intake and dysphagia. The patient was unable to provide much history. Most of the information is only available from the chart. The patient has had a significant amount of weight loss and he appears skeletal like on bedside evaluation. He is able to follow some simple commands such as shaking hands. The remainder information was only available from the chart. PAST MEDICAL HISTORY: History of hypertension, coronary artery disease - coronary artery bypass graft procedure, Parkinson disease, dementia, cardiac arrhythmias, bedbound state, weight loss, andanemia. SOCIAL HISTORY: The patient has no recent history of smoking or drinking. FAMILY HISTORY: Unavailable and not obtainable. REVIEW OF SYSTEMS: Otherwise negative. PHYSICAL EXAMINATION: GENERAL: Debilitated, cachectic man, seen in his room. HEENT: Normocephalic and atraumatic. Sclerae are anicteric. Oropharynx clear. NECK: Supple. CHEST: Clear to auscultation. CARDIOVASCULAR: Reveled a regular rate. ABDOMEN: Soft, scaphoid with good bowel sounds. EXTREMITIES: No edema. LABORATORY DATA: Laboratory data were noted. ASSESSMENT: This patient has obviously poor oral intake with significant cachexia and muscle wasting. The patient required nutrition support, and apparently nasogastric tube was present and apparently failed. Therefore, gastrostomy tube should be placed to maintain nutritional access and feeding. This was discussed with the patient's family and plans were made once they agreed. In the meantime, the patient received intravenous fluids, vancomycin, and supportive care. RECOMMENDATIONS: Per above discussion and per orders written in the chart. Thank you for asking me to participate in the care of this patient. Shasha Monae M.D. DR: JEANETH JOB#: [id number] CC: LIZZIE
[2017-01-13] MEDS: Lactulose 20gm/30ml UDC ORAL SCH ×3 (08:39→17:13)
[2017-01-13] MEDS: Heparin 5000 units/ml inj SUBQ SCH ×2 (08:40→20:59)
--- NOTE | 2017-01-13 10:44 | General Progress Note ---
Progress Note Progress Note Surgery: patient seen and examined at bedside. no acute events. doing well. T max 102. denies any pain. no complaints. labs improved. likely alcohol inducted pancreatitis given history. does have gallstones but with history likely etiology EtOH. given exam benign and no pain, could trial oral diet. no acute surgical intervention planned. will continue to follow Vincenzo Rose Jan 13, 2017 10:44
--- NOTE | 2017-01-13 11:03 | Internal Med Progress Note ---
Subjective Date of Service: Jan 13, 2017 Physician Name Leandro Rondon Attending Physician Gregory Lundy MD Current Medications Medications (Trade) Dose Ordered Sig/Nikia Route PRN Reason Start Time Stop Time Status Last Admin Dose Admin Acetaminophen (Tylenol) 650 mg Q6H PRN ORAL Mild Pain/Temp > 100.5 01/11/17 19:15 02/10/17 19:14 Dextrose (Dextrose 50%) STAT PRN IV Hypoglycemia 01/12/17 16:00 02/11/17 15:59 Heparin Sodium (Porcine) (Heparin 5000 units/ml) 5,000 units EVERY 12 HOURS SUBQ 01/11/17 21:00 02/10/17 20:59 01/12/17 09:38 Insulin Aspart (NovoLOG) BEFORE MEALS AND HS SUBQ 01/12/17 16:30 02/11/17 16:29 Lactulose (Cephulac) 20 gm THREE TIMES A DAY ORAL 01/12/17 09:00 02/11/17 08:59 01/13/17 08:39 Morphine Sulfate (Morphine Sulfate) 2 mg Q4H PRN IVP Severe Pain (Pain Scale 7-10) 01/11/17 19:15 01/18/17 19:14 Ondansetron HCl (Zofran) 4 mg Q4HR PRN IVP Nausea & Vomiting 01/11/17 19:15 02/10/17 19:14 Ranitidine HCl (Zantac) 150 mg TWICE A DAY ORAL 01/12/17 18:00 02/11/17 17:59 01/13/17 08:41 Rifaximin (Xifaxan) 550 mg EVERY 12 HOURS ORAL 01/11/17 21:00 01/18/17 20:59 01/13/17 08:39 Sodium Chloride 1,000 ml @ 75 mls/hr [id number] IV 01/11/17 20:15 02/10/17 20:14 01/12/17 22:46 Allergies: Coded Allergies: No Known Allergies (Unverified , 10/20/12) ROS Limited/Unobtainable: No Constitutional: Reports: no symptoms HEENT: Reports: no symptoms Cardiovascular: Reports: no symptoms Respiratory: Reports: no symptoms Gastrointestinal/Abdominal: Reports: abdominal pain, nausea, vomiting Genitourinary: Reports: no symptoms Neurologic/Psychiatric: Reports: no symptoms Subjective 56 YO M admitted with nausea and vomiting. Now acute pancreatitis. Await MRCP today. Tolerating clear liq diet Objective Last Vital Signs Date Time Temp Pulse Resp B/P (MAP) Pulse Ox O2 Delivery O2 Flow Rate FiO2 01/13/17 08:00 99.1 75 20 119/71 97 Room Air General Appearance: WD/WN, alert, mild distress EENT: PERRL/EOMI, normal ENT inspection, TMs normal Neck: non-tender, normal alignment, supple Cardiovascular: normal peripheral pulses, normal rate, regular rhythm, no gallop/murmur, no JVD Respiratory/Chest: chest wall non-tender, lungs clear, normal breath sounds, no respiratory distress, no accessory muscle use Abdomen: normal bowel sounds, no mass, decreased bowel sounds, tender Extremities: normal range of motion, non-tender 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 Skin: normal pigmentation, warm/dry Laboratory Tests Test 01/13/17 05:20 White Blood Count 7.1 K/UL (4.8-10.8) Red Blood Count 3.56 M/UL (4.70-6.10) L Hemoglobin 13.1 G/DL (14.2-18.0) L Hematocrit 36.6 % (42.0-52.0) L Mean Corpuscular Volume 103 FL (80-99) H Mean Corpuscular Hemoglobin 36.7 PG (27.0-31.0) H Mean Corpuscular Hemoglobin Concent 35.8 G/DL (32.0-36.0) Red Cell Distribution Width 12.3 % (11.6-14.8) Platelet Count 128 K/UL (150-450) L Mean Platelet Volume 9.2 FL (6.5-10.1) Neutrophils (%) (Auto) 70.6 % (45.0-75.0) Lymphocytes (%) (Auto) 17.5 % (20.0-45.0) L Monocytes (%) (Auto) 9.2 % (1.0-10.0) Eosinophils (%) (Auto) 1.5 % (0.0-3.0) Basophils (%) (Auto) 1.3 % (0.0-2.0) Sodium Level 132 mEQ/L (135-145) L Potassium Level 4.0 mEQ/L (3.4-4.9) Chloride Level 97 mEQ/L (98-107) L Carbon Dioxide Level 25 mEQ/L (20-30) Anion Gap 10 (5-15) Blood Urea Nitrogen 7 mg/dL (7-23) Creatinine 0.7 mg/dL (0.7-1.2) Estimat Glomerular Filtration Rate > 60 mL/min (>60) Glucose Level 152 mg/dL (74-106) H Calcium Level 8.8 mg/dL (8.6-10.2) Total Bilirubin 2.7 mg/dL (0.0-1.2) H Direct Bilirubin 1.1 mg/dL (0.1-0.3) H Aspartate Amino Transf (AST/SGOT) 45 U/L (5-40) H Alanine Aminotransferase (ALT/SGPT) 49 U/L (3-41) H Alkaline Phosphatase 143 U/L (40-129) H Total Protein 7.4 g/dL (6.6-8.7) Albumin 3.1 g/dL (3.5-5.2) L Globulin 4.3 g/dL Albumin/Globulin Ratio 0.7 (1.0-2.7) L Amylase Level 206 U/L (10-110) H Lipase 554 U/L (< 60) H Assessment/Plan Problem List: (1) Diabetes mellitus, type II Assessment & Plan: Patient refusing insulin. Restart januvia and metformin when tolerating PO (2) Elevated liver enzymes Assessment & Plan: Improving. ?acute cholocystitis? See Gen Surg note. Await MRCP (3) Nausea and vomiting (4) Pancreatitis Assessment & Plan: See GI note. ?due to alcohol vs gallstone pancreatitis? Await MRCP (5) Gall stone (6) H/O ETOH abuse (7) Varices of esophagus determined by endoscopy (8) Cirrhosis Status: not improved LEANDRO RONDON Jan 13, 2017 11:03
--- NOTE | 2017-01-13 11:04 | GI Progress Note ---
Assessment/Plan Problems: (1) Pancreatitis ICD Codes: K85.90 - Acute pancreatitis without necrosis or infection, unspecified SNOMED: 19026511 Qualifiers: Qualified Codes: K85.20 - Alcohol induced acute pancreatitis without necrosis or infection (2) H/O ETOH abuse ICD Codes: F10.10 - H/O ETOH abuse SNOMED: 268118393 (3) Cirrhosis ICD Codes: K74.60 - Cirrhosis SNOMED: 69472797 Qualifiers: Qualified Codes: K70.30 - Alcoholic cirrhosis of liver without ascites (4) Anemia ICD Codes: D64.9 - Anemia SNOMED: 072508688 (5) Elevated liver enzymes ICD Codes: R74.8 - Abnormal levels of other serum enzymes SNOMED: 188496304, 032212284 (6) Varices of esophagus determined by endoscopy ICD Codes: I85.00 - Esophageal varices without bleeding SNOMED: 97691684, 027219937 Status: unchanged Status Narrative Discussed with Dr. Mendez. Assessment/Plan Endoscopy Procedure Note 03-01-16 SUMMARY OF FINDINGS: 1. Resolving esophageal varices with a persistent ulceration in the distal esophagus from prior banding. 2. Hiatal hernia. 3. Portal hypertensive gastropathy. RECOMMENDATIONS: fu MRCP fu surgical recs CLD, adv as tolerated ppi Xifaxan + lactulose follow lipase >> downtrending fu labs Subjective Subjective no symptoms states he feels fine Objective Last 24 Hour Vital Signs Date Time Temp Pulse Resp B/P (MAP) Pulse Ox O2 Delivery O2 Flow Rate FiO2 01/13/17 08:00 99.1 75 20 119/71 97 Room Air 01/13/17 04:00 98.5 78 18 115/ 97 Room Air 01/13/17 00:04 100.4 76 18 120/76 97 Room Air 01/12/17 20:00 102.1 76 18 131/75 95 Room Air 01/12/17 16:46 97.1 74 20 124/76 98 Room Air 01/12/17 16:00 97.3 49 20 155/69 100 Room Air 01/12/17 12:00 97.5 75 20 121/75 97 Room Air Laboratory Tests Test 01/13/17 05:20 White Blood Count 7.1 K/UL (4.8-10.8) Red Blood Count 3.56 M/UL (4.70-6.10) L Hemoglobin 13.1 G/DL (14.2-18.0) L Hematocrit 36.6 % (42.0-52.0) L Mean Corpuscular Volume 103 FL (80-99) H Mean Corpuscular Hemoglobin 36.7 PG (27.0-31.0) H Mean Corpuscular Hemoglobin Concent 35.8 G/DL (32.0-36.0) Red Cell Distribution Width 12.3 % (11.6-14.8) Platelet Count 128 K/UL (150-450) L Mean Platelet Volume 9.2 FL (6.5-10.1) Neutrophils (%) (Auto) 70.6 % (45.0-75.0) Lymphocytes (%) (Auto) 17.5 % (20.0-45.0) L Monocytes (%) (Auto) 9.2 % (1.0-10.0) Eosinophils (%) (Auto) 1.5 % (0.0-3.0) Basophils (%) (Auto) 1.3 % (0.0-2.0) Sodium Level 132 mEQ/L (135-145) L Potassium Level 4.0 mEQ/L (3.4-4.9) Chloride Level 97 mEQ/L (98-107) L Carbon Dioxide Level 25 mEQ/L (20-30) Anion Gap 10 (5-15) Blood Urea Nitrogen 7 mg/dL (7-23) Creatinine 0.7 mg/dL (0.7-1.2) Estimat Glomerular Filtration Rate > 60 mL/min (>60) Glucose Level 152 mg/dL (74-106) H Calcium Level 8.8 mg/dL (8.6-10.2) Total Bilirubin 2.7 mg/dL (0.0-1.2) H Direct Bilirubin 1.1 mg/dL (0.1-0.3) H Aspartate Amino Transf (AST/SGOT) 45 U/L (5-40) H Alanine Aminotransferase (ALT/SGPT) 49 U/L (3-41) H Alkaline Phosphatase 143 U/L (40-129) H Total Protein 7.4 g/dL (6.6-8.7) Albumin 3.1 g/dL (3.5-5.2) L Globulin 4.3 g/dL Albumin/Globulin Ratio 0.7 (1.0-2.7) L Amylase Level 206 U/L (10-110) H Lipase 554 U/L (< 60) H Height (Feet): 5 Height (Inches): 5.00 Weight (Pounds): 185 General Appearance: no apparent distress, alert, overweight Cardiovascular: normal rate Respiratory/Chest: normal breath sounds, no respiratory distress Abdominal Exam: normal bowel sounds, non tender, soft Extremities: normal range of motion Arabella Ferrari N.P. Jan 13, 2017 11:04
[2017-01-13 12:00] VITALS: BP 117/78
[2017-01-13] MEDS: NS w/KCl 20mEq 1,000 ML IV SCH ×2 (12:15→17:00)
--- NOTE | 2017-01-13 14:32 | Pulmonology Progress Note ---
Assessment/Plan Problems: (1) Acute pancreatitis (2) Cholelithiasis (3) Diabetes mellitus, type II (4) H/O ETOH abuse (5) Cirrhosis Assessment/Plan NPO IV fluids symptomatic treatment f/u GI recommendations Subjective ROS Limited/Unobtainable: No Constitutional: Reports: no symptoms HEENT: Repors: no symptoms Allergies: Coded Allergies: No Known Allergies (Unverified , 10/20/12) Objective Last 24 Hour Vital Signs Date Time Temp Pulse Resp B/P (MAP) Pulse Ox O2 Delivery O2 Flow Rate FiO2 01/13/17 14:05 99.3 01/13/17 12:00 100.6 79 20 117/78 97 Room Air 01/13/17 08:00 99.1 75 20 119/71 97 Room Air 01/13/17 04:00 98.5 78 18 115/ 97 Room Air 01/13/17 00:04 100.4 76 18 120/76 97 Room Air 01/12/17 20:00 102.1 76 18 131/75 95 Room Air 01/12/17 16:46 97.1 74 20 124/76 98 Room Air 01/12/17 16:00 97.3 49 20 155/69 100 Room Air Intake and Output 01/13/17 01/14/17 19:00 07:00 Intake Total 1020 ml Balance 1020 ml Intake Oral 720 ml IV Total 300 ml General Appearance: WD/WN, no acute distress Respiratory/Chest: chest wall non-tender, lungs clear Cardiovascular: normal peripheral pulses, normal rate Abdomen: normal bowel sounds, soft, non tender Genitourinary: normal external genitalia Extremities: no cyanosis Skin: no lesions 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, abnormal gait Lymphatic: no neck adenopathy Laboratory Tests 01/13/17 05:20: White Blood Count 7.1, Red Blood Count 3.56L, Hemoglobin 13.1L, Hematocrit 36.6L , Mean Corpuscular Volume 103H, Mean Corpuscular Hemoglobin 36.7H, Mean Corpuscular Hemoglobin Concent 35.8, Red Cell Distribution Width 12.3, Platelet Count 128L, Mean Platelet Volume 9.2, Neutrophils (%) (Auto) 70.6, Lymphocytes ( %) (Auto) 17.5L, Monocytes (%) (Auto) 9.2, Eosinophils (%) (Auto) 1.5, Basophils (%) (Auto) 1.3, Sodium Level 132L, Potassium Level 4.0, Chloride Level 97L, Carbon Dioxide Level 25, Anion Gap 10, Blood Urea Nitrogen 7, Creatinine 0.7, Estimat Glomerular Filtration Rate > 60, Glucose Level 152H, Calcium Level 8.8, Total Bilirubin 2.7H, Direct Bilirubin 1.1H, Aspartate Amino Transf (AST/SGOT) 45H, Alanine Aminotransferase (ALT/SGPT) 49H, Alkaline Phosphatase 143H, Total Protein 7.4, Albumin 3.1L, Globulin 4.3, Albumin/ Globulin Ratio 0.7L, Amylase Level 206H, Lipase 554H Current Medications Medications (Trade) Dose Ordered Sig/Nikia Route PRN Reason Start Time Stop Time Status Last Admin Dose Admin Acetaminophen (Tylenol) 650 mg Q6H PRN ORAL Mild Pain/Temp > 100.5 01/11/17 19:15 02/10/17 19:14 Dextrose (Dextrose 50%) STAT PRN IV Hypoglycemia 01/12/17 16:00 02/11/17 15:59 Heparin Sodium (Porcine) (Heparin 5000 units/ml) 5,000 units EVERY 12 HOURS SUBQ 01/11/17 21:00 02/10/17 20:59 01/12/17 09:38 Insulin Aspart (NovoLOG) BEFORE MEALS AND HS SUBQ 01/12/17 16:30 02/11/17 16:29 Lactulose (Cephulac) 20 gm THREE TIMES A DAY ORAL 01/12/17 09:00 02/11/17 08:59 01/13/17 08:39 Morphine Sulfate (Morphine Sulfate) 2 mg Q4H PRN IVP Severe Pain (Pain Scale 7-10) 01/11/17 19:15 01/18/17 19:14 Ondansetron HCl (Zofran) 4 mg Q4HR PRN IVP Nausea & Vomiting 01/11/17 19:15 02/10/17 19:14 Ranitidine HCl (Zantac) 150 mg TWICE A DAY ORAL 01/12/17 18:00 02/11/17 17:59 01/13/17 08:41 Rifaximin (Xifaxan) 550 mg EVERY 12 HOURS ORAL 01/11/17 21:00 01/18/17 20:59 01/13/17 08:39 Sodium Chloride 1,000 ml @ 75 mls/hr [id number] IV 01/11/17 20:15 02/10/17 20:14 01/12/17 22:46 NAHOMI AYALA Jan 13, 2017 14:32
[2017-01-13 16:00] VITALS: BP 123/76
--- NOTE | 2017-01-13 16:32 | Diagnostic Imaging Report ---
Indication: Abdominal pain. History of pancreatitis. Cirrhosis. Technique: MRI of the abdomen was performed in a 1.5 [employer] magnet. Pulse sequences obtained include coronal and axial T2 single shot fast spin echo breathhold and respiratory gated coronal T2 3-D M.R.C.P.; this data set was displayed in different projections or MIPs. In addition, multiple coronal oblique thin T2 weighted, fat saturated SE sequences obtained through the CBD. Comparison: Ultrasound 01/11/17, MRI 02/12/13 Findings: There are multiple gallstones present within the gallbladder. The biliary ducts are not dilated. There is nodularity of the liver surface and heterogeneous liver no consistent with cirrhosis. Spleen is mildly prominent measuring between 13 and 14 cm. There is no ascites or hydronephrosis. Impression: Cholelithiasis. No evidence of choledocholithiasis or biliary ductal dilatation or obstruction. Chronic liver disease/cirrhosis as described above Splenomegaly
--- NOTE | 2017-01-13 19:44 | Cardiology Report ---
APPROVED REPORT EKG Measurement Heart [id number] IA [id number] Normal sinus rhythm Left axis deviation Abnormal ECG
[2017-01-13 20:00] VITALS: BP 122/79
[2017-01-14] VITALS: BP 110/69
[2017-01-14] MEDS: NS w/KCl 20mEq 1,000 ML IV SCH ×2 (01:35→05:54)
[2017-01-14 04:00] VITALS: BP 116/67
[2017-01-14] MEDS: NovoLOG Insulin Flexpen SUBQ SCH ×2 (05:54→12:10)
[2017-01-14 06:47] LABS: ALANINE AMINOTRANSFERASE 39 U/L (3-41); ALBUMIN/GLOBULIN RATIO 0.6 (1.0-2.7); ANION GAP 11 (5-15); ASPARTATE AMINO TRANSFERASE 37 U/L (5-40); CALCIUM 8.5 mg/dL (8.6-10.2); CARBON DIOXIDE 24 mEQ/L (20-30); CHLORIDE 97 mEQ/L (98-107); CREATININE 0.8 mg/dL (0.7-1.2); GLOMERULAR FILTRATION RATE > 60 mL/min (>60); HEMOLYSIS 5; LIPASE 283 U/L (< 60); POTASSIUM 4.1 mEQ/L (3.4-4.9); SODIUM 132 mEQ/L (135-145); TOTAL PROTEIN 7.4 g/dL (6.6-8.7)
[2017-01-14 06:52] LABS: BASOPHILS % (AUTO) 1.3 % (0.0-2.0); EOSINOPHILS % (AUTO) 2.4 % (0.0-3.0); LYMPHOCYTES % (AUTO) 18.3 % (20.0-45.0); MEAN CORPUSCULAR HEMOGLOBIN 35.2 PG (27.0-31.0); MEAN CORPUSCULAR HGB CONC 34.7 G/DL (32.0-36.0); MEAN CORPUSCULAR VOLUME 101 FL (80-99); MEAN PLATELET VOLUME 9.8 FL (6.5-10.1); MONOCYTES % (AUTO) 10.1 % (1.0-10.0); NEUTROPHILS % (AUTO) 67.9 % (45.0-75.0); PLATELET COUNT 162 K/UL (150-450); RED BLOOD COUNT 3.79 M/UL (4.70-6.10); RED CELL DISTRIBUTION WIDTH 11.9 % (11.6-14.8); WHITE BLOOD COUNT 6.7 K/UL (4.8-10.8)
[2017-01-14 07:11] LABS: BILIRUBIN,DIRECT 0.8 mg/dL (0.1-0.3)
[2017-01-14 08:00] VITALS: BP 108/68
[2017-01-14] MEDS: Lactulose 20gm/30ml UDC ORAL SCH ×2 (09:28→13:01)
[2017-01-14] MEDS: Heparin 5000 units/ml inj SUBQ SCH (09:29)
[2017-01-14 09:42] LABS: CHOLESTEROL/HDL RATIO 7.2 (3.3-4.4)
--- NOTE | 2017-01-14 10:11 | GI Progress Note ---
Assessment/Plan Problems: (1) Pancreatitis ICD Codes: K85.90 - Acute pancreatitis without necrosis or infection, unspecified SNOMED: 42767815 Qualifiers: Qualified Codes: K85.20 - Alcohol induced acute pancreatitis without necrosis or infection (2) H/O ETOH abuse ICD Codes: F10.10 - H/O ETOH abuse SNOMED: 971136036 (3) Cirrhosis ICD Codes: K74.60 - Cirrhosis SNOMED: 97543562 Qualifiers: Qualified Codes: K70.30 - Alcoholic cirrhosis of liver without ascites (4) Anemia ICD Codes: D64.9 - Anemia SNOMED: 479714180 (5) Elevated liver enzymes ICD Codes: R74.8 - Abnormal levels of other serum enzymes SNOMED: 610562054, 639766811 (6) Varices of esophagus determined by endoscopy ICD Codes: I85.00 - Esophageal varices without bleeding SNOMED: 30486302, 126436949 Status: stable Status Narrative Discussed with Dr. Mendez. Assessment/Plan Endoscopy Procedure Note 03-01-16 SUMMARY OF FINDINGS: 1. Resolving esophageal varices with a persistent ulceration in the distal esophagus from prior banding. 2. Hiatal hernia. 3. Portal hypertensive gastropathy. MRCP reviewed >> Cholelithiasis. No evidence of choledocholithiasis or biliary ductal dilatation or obstruction. Chronic liver disease/cirrhosis. RECOMMENDATIONS: fu surgical recs >> no surgical intervention needed at this time ok for DC per GI standpoint, patient will need outpatient EGD in 2 months to evaluate for esophageal varices given history, see above. fu hepatitis panel ppi Xifaxan + lactulose follow lipase >> downtrending fu labs Subjective Subjective no symptoms states he feels fine wants to go home Objective Last 24 Hour Vital Signs Date Time Temp Pulse Resp B/P (MAP) Pulse Ox O2 Delivery O2 Flow Rate FiO2 01/14/17 08:00 97.5 71 17 108/68 98 Room Air 01/14/17 04:00 98.5 69 17 116/67 98 Room Air 01/14/17 00:00 99.3 69 17 110/69 97 Room Air 01/14/17 00:00 99.3 01/13/17 20:00 101.1 74 17 122/79 98 Room Air 01/13/17 16:00 100.2 71 20 123/76 97 Room Air 01/13/17 14:05 99.3 01/13/17 12:00 100.6 79 20 117/78 97 Room Air Intake and Output 01/14/17 01/15/17 19:00 07:00 Intake Total 300 ml Balance 300 ml Intake Oral 300 ml # Voids 1 Laboratory Tests Test 01/14/17 05:45 White Blood Count 6.7 K/UL (4.8-10.8) Red Blood Count 3.79 M/UL (4.70-6.10) L Hemoglobin 13.3 G/DL (14.2-18.0) L Hematocrit 38.4 % (42.0-52.0) L Mean Corpuscular Volume 101 FL (80-99) H Mean Corpuscular Hemoglobin 35.2 PG (27.0-31.0) H Mean Corpuscular Hemoglobin Concent 34.7 G/DL (32.0-36.0) Red Cell Distribution Width 11.9 % (11.6-14.8) Platelet Count 162 K/UL (150-450) Mean Platelet Volume 9.8 FL (6.5-10.1) Neutrophils (%) (Auto) 67.9 % (45.0-75.0) Lymphocytes (%) (Auto) 18.3 % (20.0-45.0) L Monocytes (%) (Auto) 10.1 % (1.0-10.0) H Eosinophils (%) (Auto) 2.4 % (0.0-3.0) Basophils (%) (Auto) 1.3 % (0.0-2.0) Sodium Level 132 mEQ/L (135-145) L Potassium Level 4.1 mEQ/L (3.4-4.9) Chloride Level 97 mEQ/L (98-107) L Carbon Dioxide Level 24 mEQ/L (20-30) Anion Gap 11 (5-15) Blood Urea Nitrogen 6 mg/dL (7-23) L Creatinine 0.8 mg/dL (0.7-1.2) Estimat Glomerular Filtration Rate > 60 mL/min (>60) Glucose Level 171 mg/dL (74-106) H Calcium Level 8.5 mg/dL (8.6-10.2) L Total Bilirubin 2.1 mg/dL (0.0-1.2) H Direct Bilirubin 0.8 mg/dL (0.1-0.3) H Aspartate Amino Transf (AST/SGOT) 37 U/L (5-40) Alanine Aminotransferase (ALT/SGPT) 39 U/L (3-41) Alkaline Phosphatase 127 U/L (40-129) Total Protein 7.4 g/dL (6.6-8.7) Albumin 2.9 g/dL (3.5-5.2) L Globulin 4.5 g/dL Albumin/Globulin Ratio 0.6 (1.0-2.7) L Triglycerides Level 92 mg/dL (< 150) Cholesterol Level 108 mg/dL (< 200) LDL Cholesterol 75 mg/dL (60-99) HDL Cholesterol 15 mg/dL (> 60) Cholesterol/HDL Ratio 7.2 (3.3-4.4) H Lipase 283 U/L (< 60) H Hepatitis A IgM Antibody Pending Hepatitis B Surface Antigen Pending Hepatitis B Core IgM Antibody Pending Hepatitis C Antibody Pending Height (Feet): 5 Height (Inches): 5.00 Weight (Pounds): 185 General Appearance: no apparent distress, alert, overweight Cardiovascular: normal rate Respiratory/Chest: normal breath sounds, no respiratory distress Abdominal Exam: normal bowel sounds, non tender, soft Extremities: normal range of motion Arabella Ferrari N.P. Jan 14, 2017 10:11
--- NOTE | 2017-01-14 10:56 | General Progress Note ---
Progress Note Progress Note Surgery: patient seen and examined at bedside. doing well. tolerating oral diet without any pain. no pain at baseline. no n/v. febrile. labs improved. MRI reviewed - cholelithiasis without evidence of biliary obstruction. cirrhosis. Given history much more likely alcohol induced pancreatitis. unlikely due to gallstones. would not recommend cholecystectomy during this hospitalization. would discuss elective robert with patient but with extensive liver disease as noted on MRI it would be higher risk. diet as tolerated okay to d/c from surgical standpoint follow up with me in office 2 weeks after discharge abstain from EtOH Vincenzo Rose Jan 14, 2017 10:56
[2017-01-14 12:00] VITALS: BP 117/76
[2017-01-14] MEDS ORDERED: LACTULOSE20 GM/301 ORAL (14:23)
--- NOTE | 2017-01-16 11:06 | Discharge Summary ---
Discharge Summary Hospital Course Date of Admission Jan 11, 2017 at 18:48 Date of Discharge Jan 14, 2017 at 14:39 Admitting Diagnosis acute pancreatitis HPI Alex Rendon is a 56 year old male who was admitted on Jan 11, 2017 at 18:48 for Acute Pancreatitis Hospital Course [id number] Discharge Discharge Disposition Patient was discharged to Home (01) Discharge Diagnoses: Chelsey Meneses NP Jan 16, 2017 11:06
--- NOTE | 2017-01-17 01:15 | Discharge Summary 2 SIG ---
DATE OF ADMISSION: 01/11/2017 DATE OF DISCHARGE: 01/14/2017 CONSULTANTS: 1. Vincenzo Rose M.D. 2. Flex Mendez M.D. 3. Indy Whatley M.D. ATTENDING PHYSICIAN: Gregory Lundy M.D. BRIEF HOSPITAL COURSE: The patient is a 56-year-old male with a history of alcoholic pancreatitis, presented to ED complaining of nausea and vomiting that started two weeks prior to admission. The patient stated that he has four years of sobriety, however, started drinking alcohol two weeks prior and then developed nausea with vomiting that has increased since 01/06/2017 and the patient was unable to tolerate anything by mouth, liquids or solids. He presented to ED and on evaluation, he presented with normal white count, however, lipase was extremely elevated to 8130. KUB showed cholelithiasis. Ultrasound of the abdomen showed cholelithiasis with no biliary ductal dilation identified. CBD diameter was 4 mm. Liver was unremarkable. He was given IV hydration and was admitted to medical floor for pancreatitis. He was jaundiced and MRCP done showed no evidence of choledocholithiasis, biliary ductal dilation, or obstruction with presence of splenomegaly. The patient did not require any surgical intervention. Diet was advanced. Ammonia level was 49. He was continued with Xifaxan and lactulose. Lipase down trended. He was able to tolerate diet and was instructed on abstinence from alcohol. He was eventually discharged home. FINAL DIAGNOSES: 1. Acute alcoholic pancreatitis. 2. Cholelithiasis. 3. Diabetes mellitus. 4. Ethanol abuse. 5. Liver cirrhosis. 6. Anemia. 7. Gallstones. DISPOSITION: The patient was discharged home. DISCHARGE MEDICATIONS: Refer to medication list. ACTIVITY: As tolerated. FOLLOWUP: Follow up with PMD in one to two weeks after discharge. Indy Whatley M.D. I have been assigned to dictate discharge summary on this account and I was not involved in the patient's management. Chelsey Meneses N.P. DR: Jovany JOB#: [id number] CC:
== END 2017-01-14 14:39 | disposition home or self-care (01) | DRG 439 ==
LOC: EMR 15:46 → EDBEDREQ 17:06 → 4E 18:48 → 3E 01-12 15:56
DX: K85.20 Alcohol induced acute pancreatitis without necrosis or infection (principal); E87.1 Hypo-osmolality and hyponatremia; K76.6 Portal hypertension; I85.10 Secondary esophageal varices without bleeding; E11.9 Type 2 diabetes mellitus without complications; D64.9 Anemia, unspecified; K22.10 Ulcer of esophagus without bleeding; K70.30 Alcoholic cirrhosis of liver without ascites; F10.20 Alcohol dependence, uncomplicated; K80.20 Calculus of gallbladder without cholecystitis without obstruction; R74.0 Nonspecific elevation of levels of transaminase and lactic acid dehydrogenase [LDH]; K86.0 Alcohol-induced chronic pancreatitis; K44.9 Diaphragmatic hernia without obstruction or gangrene; K31.89 Other diseases of stomach and duodenum; Z79.84 Long term (current) use of oral hypoglycemic drugs
CPT/HCPCS: 36415; 71010; 74000; 74181; 76700; 80053; 80061; 81003; 82140; 82150; 82248; 82550; 82962; 83036; 83690; 83735; 84100; 85025; 85610; 86705; 86709; 86803; 87340; 93005; 99285; J1815; J2405

== ENCOUNTER 2017-07-07 13:27 | Outpatient (CLI) | payer MEDICARE ==
[~2017-07-07 13:27] MED LIST changes: +LACTULOSE20 GM/301 ORAL
--- NOTE | 2017-07-07 13:49 | GI Progress Note ---
Assessment/Plan Problems: (1) Varices of esophagus determined by endoscopy ICD Codes: I85.00 - Esophageal varices without bleeding SNOMED: 84514175, 443162065 (2) H/O ETOH abuse ICD Codes: F10.10 - H/O ETOH abuse SNOMED: 663590271 (3) Obesity ICD Codes: E66.9 - Obesity, unspecified SNOMED: 202208759 (4) Anemia ICD Codes: D64.9 - Anemia SNOMED: 401840549 (5) Ascites ICD Codes: R18.8 - Ascites SNOMED: 098703323 (6) Cirrhosis ICD Codes: K74.60 - Cirrhosis SNOMED: 30718675 Status: stable Status Narrative Seen with Dr. Mendez. Assessment/Plan Endoscopy Procedure Note 03-01-16 SUMMARY OF FINDINGS: 1. Resolving esophageal varices with a persistent ulceration in the distal esophagus from prior banding. 2. Hiatal hernia. 3. Portal hypertensive gastropathy. RECOMMENDATIONS: EGD and abdominal U/S scheduled 07/11/17. - NPO @ PR day prior procedure explained. labs to be drawn procedure day >> CBC, CMP, coags will need repeat colonoscopy 10/2017. Subjective Gastrointestinal/Abdominal: Reports: no symptoms Objective T 98.4 BP 141/92 P 81 95 RA WT 174.4 (8lbs weight loss since last visit) General Appearance: WD/WN, no apparent distress, alert, overweight Cardiovascular: normal rate Respiratory/Chest: normal breath sounds, no respiratory distress Abdominal Exam: normal bowel sounds, non tender, soft Extremities: normal range of motion, non-tender Arabella Ferrari N.P. Jul 07, 2017 13:49
== END 2017-07-07 14:09 | disposition home or self-care (01) ==
LOC: PAN 13:27
DX: I85.00 Esophageal varices without bleeding (principal); F10.10 Alcohol abuse, uncomplicated; E66.9 Obesity, unspecified; D64.9 Anemia, unspecified; R18.8 Other ascites; K74.60 Unspecified cirrhosis of liver; K44.9 Diaphragmatic hernia without obstruction or gangrene; K76.6 Portal hypertension; K31.89 Other diseases of stomach and duodenum
CPT/HCPCS: 99212

== ENCOUNTER 2017-07-11 07:05 | Day surgery (SDC) | payer MEDICARE ==
[~2017-07-11] VITALS: Ht 165.1 cm; Wt 78.9 kg
[2017-07-11] VITALS (10 sets, daily range): BP systolic 116–132; BP diastolic 68–87
[2017-07-11] MEDS ORDERED: Lidocaine 1% MPF 10mg/ml 5ml ONE (10:00)
[2017-07-11] MEDS ORDERED: Propofol 200mg/20ml IV ONE (10:00)
[2017-07-11] MEDS ORDERED: LR 1000ml ONE (10:00)
[2017-07-11 10:08] LABS: HEMATOCRIT 43.7 % (42.0-52.0); HEMOGLOBIN 15.2 G/DL (14.2-18.0); MEAN CORPUSCULAR VOLUME 99 FL (80-99); PLATELET COUNT 97 K/UL (150-450); RED BLOOD COUNT 4.41 M/UL (4.70-6.10); RED CELL DISTRIBUTION WIDTH 13.1 % (11.6-14.8); WHITE BLOOD COUNT 2.8 K/UL (4.8-10.8)
--- NOTE | 2017-07-11 10:10 | Pre-Procedure Note/Attestation ---
Pre-Procedure Note/Attestation Complete Prior to Procedure Planned Procedure: not applicable Procedure Narrative: egd Indications for Procedure Pre-Operative Diagnosis: cirrhosis Attestation I attest that I discussed the nature of the procedure; its benefits; risks and complications; and alternatives (and the risks and benefits of such alternatives ), prior to the procedure, with the patient (or the patient's legal signs and displays sales representative). I attest that, if there was a reasonable possibility of needing a blood transfusion, the patient (or the patient's legal signs and displays sales representative) was given the [facility] standardized written summary, pursuant to the Alirio Elias-Fela Solis Blood Safety Act ([place] Health and Safety Code # 1645, as amended). I attest that I re-evaluated the patient just prior to the surgery and that there has been no change in the patient's H&P, except as documented below: JOSHUA ALVARADO Jul 11, 2017 10:10
--- NOTE | 2017-07-11 10:11 | Short Stay Surgery H&P ---
History of Present Illness History of Present Illness Chief Complaint cirrhosis FERNANDO Rendon is a 57 year old male who was admitted on for Liver Cirrhosis Patient History Allergies: Coded Allergies: No Known Allergies (Unverified , 10/20/12) PAST MEDICAL HISTORY: (1) Cirrhosis (2) Ascites (3) Anemia (4) Cholelithiasis (5) Diabetes mellitus, type II Past Surgeries: Social History: Medication History Scheduled Rifaximin* (Xifaxan*), 550 MG ORAL TWICE A DAY, (Reported) Sitagliptin Phos/Metformin Hcl (Janumet 50-1,000 Mg Tablet), 1 TAB ORAL TWICE A DAY, (Reported) Scheduled PRN Lactulose (Lactulose*), 30 ML ORAL TID PRN for Constipation, (Reported) Review of Systems Cardiovascular: Reports: no symptoms Respiratory: Reports: no symptoms Skeletal: Reports: no symptoms Gastrointestinal: Reports: no symptoms Genitourinary: Reports: no symptoms Neurologic: Reports: no symptoms Endocrine: Reports: no symptoms Hematologic: Reports: no symptoms Physical Exam Vital Signs Last Vital Signs Date Time Temp Pulse Resp B/P (MAP) Pulse Ox O2 Delivery O2 Flow Rate FiO2 07/11/17 09:43 98.1 73 20 132/87 98 Room Air 98.1 Labs Laboratory Tests Test 07/11/17 09:55 White Blood Count Pending Red Blood Count Pending Hemoglobin Pending Hematocrit Pending Mean Corpuscular Volume Pending Mean Corpuscular Hemoglobin Pending Mean Corpuscular Hemoglobin Concent Pending Red Cell Distribution Width Pending Platelet Count Pending Mean Platelet Volume Pending Neutrophils (%) (Auto) Pending Lymphocytes (%) (Auto) Pending Monocytes (%) (Auto) Pending Eosinophils (%) (Auto) Pending Basophils (%) (Auto) Pending Prothrombin Time Pending Prothromb Time International Ratio Pending Activated Partial Thromboplast Time Pending Sodium Level Pending Potassium Level Pending Chloride Level Pending Carbon Dioxide Level Pending Blood Urea Nitrogen Pending Creatinine Pending Estimat Glomerular Filtration Rate Pending Glucose Level Pending Calcium Level Pending Total Bilirubin Pending Aspartate Amino Transf (AST/SGOT) Pending Alanine Aminotransferase (ALT/SGPT) Pending Alkaline Phosphatase Pending Total Protein Pending Albumin Pending Globulin Pending Skin: normal HENT: normal Heart: normal Lungs: normal Abdomen: normal Extremities: normal Plan Plan of Care egd Final Diagnosis: Attestation Are the patient's medical conditions optimized for surgery? Attestation Response: yes JOSHUA ALVARADO Jul 11, 2017 10:11
[2017-07-11 10:28] LABS: INR 1.1 (0.9-1.1)
[2017-07-11 10:29] LABS: ALANINE AMINOTRANSFERASE 38 U/L (12-78); ALBUMIN 3.5 G/DL (3.4-5.0); ALBUMIN/GLOBULIN RATIO 0.7 (1.0-2.7); ALKALINE PHOSPHATASE 82 U/L (46-116); ANION GAP 7 mmol/L (5-15); ASPARTATE AMINO TRANSFERASE 46 U/L (15-37); BILIRUBIN,TOTAL 1.1 MG/DL (0.2-1.0); BLOOD UREA NITROGEN 10 mg/dL (7-18); CALCIUM 9.2 MG/DL (8.5-10.1); CARBON DIOXIDE 30 MMOL/L (21-32); CHLORIDE 100 MMOL/L (98-107); CREATININE 0.8 MG/DL (0.55-1.30); POTASSIUM 3.8 MMOL/L (3.5-5.1); SODIUM 137 MMOL/L (136-145)
[2017-07-11 10:32] LABS: BILIRUBIN,DIRECT 0.4 MG/DL (0.0-0.3)
--- NOTE | 2017-07-11 10:40 | Immediate Post-Op Evaluation ---
Immediate Post-Op Evalulation Immediate Post-Op Evalulation Procedure: egd Date of Evaluation: Jul 11, 2017 Time of Evaluation: 10:40 IV Fluids: 300 Blood Pressure Systolic: 105 Blood Pressure Diastolic: 71 Pulse Rate: 79 Respiratory Rate: 14 O2 Sat by Pulse Oximetry: 99 Temperature (Fahrenheit): 98.0 Nausea: No Vomiting: No Complications none Patient Status: awake, reacts, patent Hydration Status: adequate Drug: none MELISSA SHELTON CRNA Jul 11, 2017 10:40
--- NOTE | 2017-07-11 10:42 | Anethesia Preoperative Eval ---
Anesthesia Pre-op PMH/ROS General Date of Evaluation: Jul 11, 2017 Time of Evaluation: 10:15 Anesthesiologist: Andria ASA Score: ASA 2 Mallampati Score Class I : Soft palate, uvula, fauces, pillars visible Class II: Soft palate, uvula, fauces visible Class III: Soft palate, base of uvula visible Class IV: Only hard plate visible Mallampati Classification: Class II Surgeon: stu Diagnosis: Varices Surgical Procedure: EGD Anesthesia History: none Social History: alcohol use Family History: no anesthesia problems Allergies: Coded Allergies: No Known Allergies (Unverified , 10/20/12) Medications: see eMAR Past Medical History Cardiovascular: Reports: HTN, Denies: CAD, VA, valve dz, arrhythmia, other Pulmonary: Denies: asthma, COPD, AV, other Gastrointestinal/Genitourinary: Reports: GERD, other Neurologic/Psychiatric: Denies: dementia, CVA, depression/anxiety, TIA, other Endocrine: Reports: DM, Denies: hypothyroidism, steroids, other HEENT: Denies: cataract (L), cataract (R), glaucoma, [place] (L), [place] (R), other Hematology/Immune: Reports: anemia, Denies: DVT, bleeding disorder, other Musculoskeletal/Integumentary: Denies: OA, RA, DJD, DDD, edema, other Other: obesity PSxH Narrative: egd Anesthesia Pre-op Phys. Exam Physician Exam Last Vital Signs Date Time Temp Pulse Resp B/P (MAP) Pulse Ox O2 Delivery O2 Flow Rate FiO2 07/11/17 09:43 98.1 73 20 132/87 98 Room Air 98.1 Constitutional: NAD Neurologic: CN 2-12 intact Cardiovascular: RRR Respiratory: CTA Gastrointestinal: S/NT/ND Airway Exam Mallampati Score: Class II MO: full ROM: full Dentures: no upper, no lower Anesthesia Pre-op A/P Labs Hematology Test 07/11/17 09:55 White Blood Count 2.8 K/UL (4.8-10.8) L Red Blood Count 4.41 M/UL (4.70-6.10) L Hemoglobin 15.2 G/DL (14.2-18.0) Hematocrit 43.7 % (42.0-52.0) Mean Corpuscular Volume 99 FL (80-99) Mean Corpuscular Hemoglobin 34.4 PG (27.0-31.0) H Mean Corpuscular Hemoglobin Concent 34.8 G/DL (32.0-36.0) Red Cell Distribution Width 13.1 % (11.6-14.8) Platelet Count 97 K/UL (150-450) L Mean Platelet Volume 11.4 FL (6.5-10.1) H Neutrophils (%) (Auto) % (45.0-75.0) Lymphocytes (%) (Auto) % (20.0-45.0) Monocytes (%) (Auto) % (1.0-10.0) Eosinophils (%) (Auto) % (0.0-3.0) Basophils (%) (Auto) % (0.0-2.0) Neutrophils % (Manual) Pending Lymphocytes % (Manual) Pending Platelet Estimate Pending Platelet Morphology Pending Coagulation Test 07/11/17 09:55 Prothrombin Time 11.4 SEC (9.30-11.50) Prothromb Time International Ratio 1.1 (0.9-1.1) Activated Partial Thromboplast Time 27 SEC (23-33) Chemistry Test 07/11/17 09:55 Sodium Level 137 MMOL/L (136-145) Potassium Level 3.8 MMOL/L (3.5-5.1) Chloride Level 100 MMOL/L (98-107) Carbon Dioxide Level 30 MMOL/L (21-32) Anion Gap 7 mmol/L (5-15) Blood Urea Nitrogen 10 mg/dL (7-18) Creatinine 0.8 MG/DL (0.55-1.30) Estimat Glomerular Filtration Rate > 60 mL/min (>60) Glucose Level 171 MG/DL (74-106) H Calcium Level 9.2 MG/DL (8.5-10.1) Total Bilirubin 1.1 MG/DL (0.2-1.0) H Direct Bilirubin 0.4 MG/DL (0.0-0.3) H Aspartate Amino Transf (AST/SGOT) 46 U/L (15-37) H Alanine Aminotransferase (ALT/SGPT) 38 U/L (12-78) Alkaline Phosphatase 82 U/L (46-116) Total Protein 8.4 G/DL (6.4-8.2) H Albumin 3.5 G/DL (3.4-5.0) Globulin 4.9 g/dL Albumin/Globulin Ratio 0.7 (1.0-2.7) L Studies Pre-op Studies: EKG - sr Risk Assessment & Plan Plan: mac Pre-Antibiotics Drug: none MELISSA SHELTON CRNA Jul 11, 2017 10:42
--- NOTE | 2017-07-11 10:46 | Endoscopy Procedure Note ---
Endoscopy Procedure Note General Indication for Procedure: cirrhosis Procedures Performed: EGD Operative Findings/Diagnosis: esoph varices Specimen: yes Pt Tolerated Procedure Well: Yes Estimated Blood Loss: none Anesthesia Anesthesiologist: karlie Anesthesia: MAC Inserted Devices Implant(s) used?: No GI Core Measures 50 yrs or older w/o bx or poly: Not Applicable 10yrs. F/U not recommended: Not Applicable JOSHUA ALVARADO Jul 11, 2017 10:46
--- NOTE | 2017-07-11 11:03 | Diagnostic Imaging Report ---
Indication: Abdominal pain Technique: Solorio-scale and duplex images of the upper abdomen were obtained Comparison: 01/11/2017 ultrasound, 01/13/2017 MRCP Findings: Gallbladder is surgically absent. Common bile duct measures for mm in diameter. No intrahepatic biliary ductal dilatation. Liver demonstrates slightly coarsened echogenicity. No focal abnormality. No surface nodularity is appreciated on this exam Portal vein and hepatic veins are patent. Pancreas is incompletely visualized due to overlying bowel gas, visualized portions are unremarkable. The spleen is borderline enlarged, measuring 13.1 cm long axis dimension Left kidney measures 12.3 cm in length. Right kidney measures 11.3 cm length. Both kidneys demonstrate normal echogenicity. There is no hydronephrosis. No focal abnormality . Abdominal aorta is partially obscured by bowel gas, visualized portions are non-aneurysmal . No free intraperitoneal fluid is demonstrated. Since the prior exam, patient has undergone interim cholecystectomy.. The splenomegaly seen currently is not evident on the prior exam but is reported on an MRI of the abdomen dated 01/13/2017. Although not evident on this exam, nodularity of the liver surface has been reported on prior sonogram as well as on the prior MRI Impression: Interim cholecystectomy, since prior studies of 01/11/2017 and 01/13/2017 Negative for dilated ducts Borderline splenomegaly, also reported on prior MRI Coarsened hepatic echogenicity, consistent with known clinical history of cirrhosis. Current exam probably underestimates degree of liver surface nodularity, which is evident on prior studies Note Limited visualization of the pancreas and abdominal aorta
--- NOTE | 2017-07-11 12:05 | 48 Hour Post Anesthesia Eval ---
Post Anesthesia Evaluation Procedure: egd Date of Evaluation: Jul 11, 2017 Time of Evaluation: 12:05 Blood Pressure Systolic: 122 0: 80 Pulse Rate: 57 Respiratory Rate: 15 O2 Sat by Pulse Oximetry: 98 Airway: patent Nausea: No Vomiting: No Hydration Status: adequate Cardiopulmonary Status: stable Mental Status/LOC: patient returned to baseline Follow-up Care/Observations: na Post-Anesthesia Complications: none Follow-up care needed: N/A MELISSA SHELTON CRNA Jul 11, 2017 12:05
--- NOTE | 2017-07-11 16:00 | Procedure Note ---
DATE OF PROCEDURE: 07/11/2017 PROCEDURE: Upper endoscopy with biopsy. ANESTHESIA: Per JENAE Nanette. INSTRUMENT: Olympus adult flexible endoscope. INDICATION: History of esophageal varices. REASON FOR PROCEDURE: The procedure, risks, benefits, and possible consequences, including hemorrhage, aspiration, perforation and infection, and alternative treatments, were explained to the patient/legal guardian by Dr. Flex Mendez and the patient/legal guardian understood and accepted these risks. DESCRIPTION OF PROCEDURE: After informed consent was obtained and the patient was adequately sedated, Olympus upper endoscope was advanced from the mouth into second portion of duodenum and retroflexion performed in the stomach. The patient had evidence of about 3 cm hiatal hernia. There was some ulceration at the site of prior banding even the banding was long time ago. There was maybe 1 or 2 short columns of esophageal varices but there were not big enough to be band, there may be grade 2 maximum. Given there was no recent bleeding and small varices and given ulcerations on the prior banding sites we decided not to do banding at this time. At this time, the scope was advanced into the stomach. There was evidence of portal hypertensive gastropathy, mild to moderate. Biopsy from the antrum was obtained to rule out H. pylori infection. The rest of the examination grossly was within normal limits. There is no evidence of any gastric varices at this time. SUMMARY OF FINDINGS: 1. Short columns of may be grade 2 esophageal varices without any stigmata. 2. A 3 cm hiatal hernia. 3. Portal hypertensive gastropathy status post biopsy. RECOMMENDATIONS: 1. Followup biopsy results and treat accordingly. 2. We will follow the patient in the office and consider resuming propranolol if the blood pressure is stable and pulse is stable. I want to thank Dr. Gregory Lundy M.D. for this kind referral. Flex Mendez M.D. DR: Inderjit JOB#: [id number] CC: Gregory Lundy M.D.; Fax#: [phone]
--- NOTE | 2017-07-16 20:21 | Cardiology Report ---
APPROVED REPORT EKG Measurement Heart [id number] CO 170P47 [id number] SUq281 Normal sinus rhythm Normal ECG
== END 2017-07-11 12:10 | disposition home or self-care (01) ==
LOC: GAS 07:05
DX: K74.60 Unspecified cirrhosis of liver (principal); E11.9 Type 2 diabetes mellitus without complications; Z90.49 Acquired absence of other specified parts of digestive tract; K29.50 Unspecified chronic gastritis without bleeding; K21.9 Gastro-esophageal reflux disease without esophagitis; I10 Essential (primary) hypertension; K44.9 Diaphragmatic hernia without obstruction or gangrene; K76.6 Portal hypertension; K31.89 Other diseases of stomach and duodenum
CPT/HCPCS: 36415; 43239; 76700; 80053; 82248; 82962; 85007; 85025; 85610; 85730; 93005; J2704; J7120; 94003; 94150

== ENCOUNTER 2017-07-24 13:52 | Outpatient (CLI) | payer MEDICARE ==
--- NOTE | 2017-07-24 16:58 | GI Progress Note ---
Assessment/Plan Problems: (1) Cirrhosis ICD Codes: K74.60 - Cirrhosis SNOMED: 06994892 (2) Ascites ICD Codes: R18.8 - Ascites SNOMED: 290417082 (3) Anemia ICD Codes: D64.9 - Anemia SNOMED: 053816002 (4) Cholelithiasis ICD Codes: K80.20 - Calculus of gallbladder without cholecystitis without obstruction SNOMED: 434466502 (5) Varices of esophagus determined by endoscopy ICD Codes: I85.00 - Esophageal varices without bleeding SNOMED: 65625261, 894582378 Status: stable Status Narrative Seen with Dr. Mendez. Assessment/Plan SUMMARY OF FINDINGS: 1. Short columns of may be grade 2 esophageal varices without any stigmata. 2. A 3 cm hiatal hernia. 3. Portal hypertensive gastropathy status post biopsy. RECOMMENDATIONS: 1. Followup biopsy results and treat accordingly. >> negative for H. Pylori 2. We will follow the patient in the office and consider resuming propranolol if the blood pressure is stable and pulse is stable. >> hold propranolol addition RTC x 3 month for colonoscopy repeat abdominal U/S x 6 months Subjective Gastrointestinal/Abdominal: Reports: no symptoms Objective T 98.6 BP 132/94 P 113 95 RA General Appearance: WD/WN, no apparent distress, alert Cardiovascular: normal rate Respiratory/Chest: normal breath sounds, no respiratory distress Abdominal Exam: normal bowel sounds, non tender, soft Extremities: normal range of motion, non-tender Arabella Ferrari N.P. Jul 24, 2017 16:58
[2017-07-24] MEDS ORDERED: INDERAL10 MG GT (16:59)
== END 2017-07-24 14:25 | disposition home or self-care (01) ==
LOC: PAN 13:52
DX: K74.60 Unspecified cirrhosis of liver (principal); R18.8 Other ascites; D64.9 Anemia, unspecified; K80.20 Calculus of gallbladder without cholecystitis without obstruction; K44.9 Diaphragmatic hernia without obstruction or gangrene; K76.6 Portal hypertension; K31.89 Other diseases of stomach and duodenum

== ENCOUNTER 2017-10-23 13:28 | Outpatient (CLI) | payer MEDICARE ==
[~2017-10-23 13:28] MED LIST changes: +INDERAL10 MG GT
--- NOTE | 2017-10-23 17:04 | GI Progress Note ---
Assessment/Plan Problems: (1) Varices of esophagus determined by endoscopy ICD Codes: I85.00 - Esophageal varices without bleeding SNOMED: 52138473, 244851544 (2) Cirrhosis ICD Codes: K74.60 - Cirrhosis SNOMED: 04629315 (3) Ascites ICD Codes: R18.8 - Ascites SNOMED: 023526601 (4) Anemia ICD Codes: D64.9 - Anemia SNOMED: 366546915 (5) H/O ETOH abuse ICD Codes: F10.10 - H/O ETOH abuse SNOMED: 612790810 (6) Obesity ICD Codes: E66.9 - Obesity, unspecified SNOMED: 852501610 Status: stable Status Narrative Seen with Dr. Mendez. Assessment/Plan abdominal U/S reviewed with patient plan for colonoscopy 11/30/17. - CLD & (Nulytely/Suprep/Movi-Prep) prep instructions given and acknowledged by patient. - NPO @ [place] day prior procedure explained. - labs to be drawn day of procedure >> CBC, CMP repeat EGD 2018. Subjective Gastrointestinal/Abdominal: Reports: no symptoms Subjective admits to still drinking Objective T 98.5 BP 135/93 P 81 98 RA General Appearance: WD/WN, no apparent distress, alert Cardiovascular: normal rate Respiratory/Chest: normal breath sounds, no respiratory distress Abdominal Exam: normal bowel sounds, non tender, soft Extremities: normal range of motion, non-tender Charlie Ferrari NP Oct 23, 2017 17:04
== END 2017-10-23 13:58 | disposition home or self-care (01) ==
LOC: PAN 13:28
DX: I85.00 Esophageal varices without bleeding (principal); K74.60 Unspecified cirrhosis of liver; R18.8 Other ascites; D64.9 Anemia, unspecified; F10.10 Alcohol abuse, uncomplicated; E66.9 Obesity, unspecified
CPT/HCPCS: 99211

== ENCOUNTER 2017-12-01 13:30 | Outpatient (CLI) | payer MEDICARE ==
--- NOTE | 2017-12-01 15:01 | GI Progress Note ---
Assessment/Plan Problems: (1) Varices of esophagus determined by endoscopy ICD Codes: I85.00 - Esophageal varices without bleeding SNOMED: 38652401, 717660692 (2) Cirrhosis ICD Codes: K74.60 - Cirrhosis SNOMED: 48647724 (3) Ascites ICD Codes: R18.8 - Ascites SNOMED: 772190384 (4) Anemia ICD Codes: D64.9 - Anemia SNOMED: 109548111 (5) H/O ETOH abuse ICD Codes: F10.10 - H/O ETOH abuse SNOMED: 609014274 (6) Obesity ICD Codes: E66.9 - Obesity, unspecified SNOMED: 976513547 (7) Acute pancreatitis ICD Codes: K85.90 - Acute pancreatitis without necrosis or infection, unspecified SNOMED: 199216832 (8) Elevated liver enzymes ICD Codes: R74.8 - Abnormal levels of other serum enzymes SNOMED: 275851263, 653017530 (9) Nausea and vomiting ICD Codes: R11.2 - Nausea with vomiting, unspecified SNOMED: 69821803 Status: doing well, stable Status Narrative Seen with Dr. Mendez. Assessment/Plan SUMMARY OF FINDINGS reviewed with patient: 1. Rectal varices. 2. Internal hemorrhoids. RECOMMENDATIONS: repeat abdominal U/S x 3 months given history of cirrhosis Repeat colonoscopy in 5 years. Subjective Gastrointestinal/Abdominal: Reports: no symptoms Objective T 98.4 BP 132/91 P 107 P 94 General Appearance: WD/WN, no apparent distress, alert Cardiovascular: normal rate Respiratory/Chest: normal breath sounds, no respiratory distress Abdominal Exam: normal bowel sounds, non tender, soft Extremities: normal range of motion, non-tender Charlie Ferrari POWER PLANT INSPECTOR Dec 01, 2017 15:01
[2017-12-01 15:56] VITALS: BP 132/91
== END 2017-12-01 15:30 | disposition home or self-care (01) ==
LOC: PAN 13:30
DX: I85.00 Esophageal varices without bleeding (principal); K74.60 Unspecified cirrhosis of liver; R18.8 Other ascites; D64.9 Anemia, unspecified; F10.10 Alcohol abuse, uncomplicated; E66.9 Obesity, unspecified; K85.90 Acute pancreatitis without necrosis or infection, unspecified; R74.8 Abnormal levels of other serum enzymes; R11.2 Nausea with vomiting, unspecified; K64.8 Other hemorrhoids
CPT/HCPCS: G0463

== ENCOUNTER 2018-02-19 14:29 | Outpatient (CLI) | payer MEDICARE ==
--- NOTE | 2018-02-19 15:09 | GI Progress Note ---
Assessment/Plan Problems: (1) Varices of esophagus determined by endoscopy ICD Codes: I85.00 - Esophageal varices without bleeding SNOMED: 93602235, 783816955 (2) H/O ETOH abuse ICD Codes: F10.10 - H/O ETOH abuse SNOMED: 808593246 (3) Elevated liver enzymes ICD Codes: R74.8 - Abnormal levels of other serum enzymes SNOMED: 556646042, 875645600 (4) Obesity ICD Codes: E66.9 - Obesity, unspecified SNOMED: 837966960 (5) Nausea and vomiting ICD Codes: R11.2 - Nausea with vomiting, unspecified SNOMED: 32170858 (6) Cirrhosis ICD Codes: K74.60 - Cirrhosis SNOMED: 55524894 (7) Ascites ICD Codes: R18.8 - Ascites SNOMED: 713548077 (8) Anemia ICD Codes: D64.9 - Anemia SNOMED: 372192290 Status: stable Status Narrative Discussed with Dr. Mendez. Assessment/Plan routine abdominal US given history of cirrhosis RTC prn/x6 months The patient was seen and examined at bedside and all new and available data was reviewed in the patients chart. I agree with the above findings, impression and plan. (Patient seen earlier today. Signature stamp does not reflect patient encounter time.). - Flex Mendez MD Subjective Gastrointestinal/Abdominal: Reports: no symptoms Objective T 98.6 BP 136/85 P 80 96 RA General Appearance: WD/WN, no apparent distress, alert Cardiovascular: normal rate Respiratory/Chest: normal breath sounds, no respiratory distress Abdominal Exam: normal bowel sounds, non tender, soft Extremities: normal range of motion, non-tender Charlie Ferrari FL[employer] MACHINE OPERATOR Feb 19, 2018 15:09
== END 2018-02-19 14:59 | disposition home or self-care (01) ==
LOC: PAN 14:29
DX: I85.00 Esophageal varices without bleeding (principal); F10.21 Alcohol dependence, in remission; R74.8 Abnormal levels of other serum enzymes; E66.9 Obesity, unspecified; R11.2 Nausea with vomiting, unspecified; K74.60 Unspecified cirrhosis of liver; R18.8 Other ascites; D64.9 Anemia, unspecified
CPT/HCPCS: G0463

== ENCOUNTER 2018-02-27 09:21 | Outpatient (CLI) | payer MEDICARE ==
[2018-02-27 10:24] LABS: HEMATOCRIT 48.6 % (42.0-52.0); HEMOGLOBIN 17.1 G/DL (14.2-18.0); MEAN CORPUSCULAR VOLUME 99 FL (80-99); PLATELET COUNT 109 K/UL (150-450); RED BLOOD COUNT 4.92 M/UL (4.70-6.10); WHITE BLOOD COUNT 3.1 K/UL (4.8-10.8)
[2018-02-27 10:36] LABS: INR 1.4 (0.9-1.1)
[2018-02-27 10:52] LABS: ALANINE AMINOTRANSFERASE 55 U/L (12-78); ALBUMIN 3.9 G/DL (3.4-5.0); ALBUMIN/GLOBULIN RATIO 0.8 (1.0-2.7); ALKALINE PHOSPHATASE 78 U/L (46-116); ANION GAP 10 mmol/L (5-15); ASPARTATE AMINO TRANSFERASE 61 U/L (15-37); BLOOD UREA NITROGEN 6 mg/dL (7-18); CALCIUM 9.6 MG/DL (8.5-10.1); CARBON DIOXIDE 27 MMOL/L (21-32); CHLORIDE 102 MMOL/L (98-107); CREATININE 0.8 MG/DL (0.55-1.30); POTASSIUM 4.1 MMOL/L (3.5-5.1); SODIUM 139 MMOL/L (136-145)
--- NOTE | 2018-02-27 12:38 | Diagnostic Imaging Report ---
Indication:Abdominal pain Technique: Grayscale and duplex Doppler imaging of the abdomen performed. Comparison: None Findings: The liver shows a coarse echotexture and slightly echogenic. No focal lesions or surface nodularity identified. The gallbladder is absent. The demonstrated part of the pancreas, aorta and IVC show no abnormalities. Both kidneys appear unremarkable. The spleen is 12.7 cm in size. There is no biliary ductal dilatation identified. Doppler evaluation of the main portal vein shows patency. There is no ascites. No hydronephrosis seen. Impression: No acute findings. Suspected chronic liver disease. Correlate clinically. Borderline splenomegaly. Status post cholecystectomy
== END 2018-02-27 11:21 | disposition home or self-care (01) ==
LOC: ULS 09:21
DX: K74.60 Unspecified cirrhosis of liver (principal); I85.00 Esophageal varices without bleeding; F10.10 Alcohol abuse, uncomplicated; R74.8 Abnormal levels of other serum enzymes; E66.9 Obesity, unspecified; R11.2 Nausea with vomiting, unspecified; R18.8 Other ascites; D64.9 Anemia, unspecified; R16.1 Splenomegaly, not elsewhere classified; Z90.49 Acquired absence of other specified parts of digestive tract
CPT/HCPCS: 36415; 76700; 80053; 85007; 85025; 85610; 85730

== ENCOUNTER 2018-07-16 13:47 | Outpatient (CLI) | payer MEDICARE ==
[2018-07-16 14:10] VITALS: BP 138/88
--- NOTE | 2018-07-16 14:15 | General Progress Note ---
Assessment/Plan Problem List: (1) Varices of esophagus determined by endoscopy ICD Codes: I85.00 - Esophageal varices without bleeding SNOMED: 35531818, 926186147 (2) H/O ETOH abuse ICD Codes: F10.10 - H/O ETOH abuse SNOMED: 163248904 (3) Elevated liver enzymes ICD Codes: R74.8 - Abnormal levels of other serum enzymes SNOMED: 244785757, 016284023 (4) Cirrhosis ICD Codes: K74.60 - Cirrhosis SNOMED: 92195198 (5) Diabetes mellitus, type II ICD Codes: E11.9 - Type 2 diabetes mellitus without complications SNOMED: 66946522 (6) Cholelithiasis ICD Codes: K80.20 - Calculus of gallbladder without cholecystitis without obstruction SNOMED: 140149065 (7) Vitatmin D deficiency Assessment/Plan LAST COLONOSCOPY IN 2018 NEEDS REPEAT US IN AUGUST PATIETN TO RTC IN 2 MONTHS Subjective ROS Limited/Unobtainable: Yes Allergies: Coded Allergies: No Known Allergies (Unverified , 10/20/12) Objective Last 24 Hour Vital Signs Date Time Temp Pulse Resp B/P (MAP) Pulse Ox O2 Delivery O2 Flow Rate FiO2 07/16/18 14:10 98.5 75 16 138/88 95 General Appearance: alert EENT: normal ENT inspection Neck: supple Cardiovascular: normal rate Respiratory/Chest: decreased breath sounds Abdomen: soft Extremities: non-tender Flex Mendez MD Jul 16, 2018 14:15
== END 2018-07-16 14:17 | disposition home or self-care (01) ==
LOC: PAN 13:47
DX: I85.00 Esophageal varices without bleeding (principal); F10.10 Alcohol abuse, uncomplicated; R74.8 Abnormal levels of other serum enzymes; K74.60 Unspecified cirrhosis of liver; E11.9 Type 2 diabetes mellitus without complications; K80.20 Calculus of gallbladder without cholecystitis without obstruction; E55.9 Vitamin D deficiency, unspecified
CPT/HCPCS: G0463

== ENCOUNTER 2018-09-17 13:56 | Outpatient (CLI) | payer MEDICARE ==
[2018-09-17 14:10] VITALS: BP 136/84
--- NOTE | 2018-09-17 14:11 | General Progress Note ---
Assessment/Plan Problem List: (1) Vitatmin D deficiency (2) Varices of esophagus determined by endoscopy ICD Codes: I85.00 - Esophageal varices without bleeding SNOMED: 50388472, 957743273 (3) H/O ETOH abuse ICD Codes: F10.10 - H/O ETOH abuse SNOMED: 356004482 (4) Elevated liver enzymes ICD Codes: R74.8 - Abnormal levels of other serum enzymes SNOMED: 493100731, 781576468 (5) Diabetes mellitus, type II ICD Codes: E11.9 - Type 2 diabetes mellitus without complications SNOMED: 61680216 (6) Cirrhosis ICD Codes: K74.60 - Cirrhosis SNOMED: 76829326 (7) Cholelithiasis ICD Codes: K80.20 - Calculus of gallbladder without cholecystitis without obstruction SNOMED: 889509329 Assessment/Plan: repeat abd us labs RTC 3 months Subjective ROS Limited/Unobtainable: Yes Allergies: Coded Allergies: No Known Allergies (Unverified , 10/20/12) Objective General Appearance: alert EENT: normal ENT inspection Neck: supple Cardiovascular: normal rate Respiratory/Chest: lungs clear Abdomen: normal bowel sounds, non tender, soft Extremities: non-tender Flex Mendez MD September 17, 2018 14:11
== END 2018-09-17 15:55 | disposition home or self-care (01) ==
LOC: PAN 13:56
DX: K80.20 Calculus of gallbladder without cholecystitis without obstruction (principal); K74.60 Unspecified cirrhosis of liver; E11.9 Type 2 diabetes mellitus without complications; R74.8 Abnormal levels of other serum enzymes; F10.10 Alcohol abuse, uncomplicated; I85.00 Esophageal varices without bleeding; E55.9 Vitamin D deficiency, unspecified
CPT/HCPCS: 99212

== ENCOUNTER 2018-09-23 09:15 | Outpatient (CLI) | payer MEDICARE ==
[2018-09-23 10:21] LABS: HEMATOCRIT 44.5 % (42.0-52.0); HEMOGLOBIN 16.1 G/DL (14.2-18.0); MEAN CORPUSCULAR VOLUME 102 FL (80-99); PLATELET COUNT 109 K/UL (150-450); RED BLOOD COUNT 4.38 M/UL (4.70-6.10); RED CELL DISTRIBUTION WIDTH 11.1 % (11.6-14.8); WHITE BLOOD COUNT 2.8 K/UL (4.8-10.8)
[2018-09-23 10:41] LABS: AMMONIA 56 umol/L (11-32)
[2018-09-23 11:07] LABS: ALANINE AMINOTRANSFERASE 42 U/L (12-78); ALBUMIN 3.9 G/DL (3.4-5.0); ALBUMIN/GLOBULIN RATIO 0.9 (1.0-2.7); ALKALINE PHOSPHATASE 58 U/L (46-116); ANION GAP 8 mmol/L (5-15); ASPARTATE AMINO TRANSFERASE 44 U/L (15-37); BILIRUBIN,TOTAL 1.2 MG/DL (0.2-1.0); BLOOD UREA NITROGEN 6 mg/dL (7-18); CALCIUM 9.1 MG/DL (8.5-10.1); CARBON DIOXIDE 28 MMOL/L (21-32); CHLORIDE 101 MMOL/L (98-107); CHOLESTEROL 140 MG/DL (< 200); CREATININE 0.8 MG/DL (0.55-1.30); HDL CHOLESTEROL 70 MG/DL (40-60); PHOSPHORUS 3.2 MG/DL (2.5-4.9); POTASSIUM 3.7 MMOL/L (3.5-5.1); SODIUM 137 MMOL/L (136-145); TRIGLYCERIDES 69 MG/DL (30-150)
[2018-09-23 11:08] LABS: BILIRUBIN,DIRECT 0.3 MG/DL (0.0-0.3)
--- NOTE | 2018-09-23 14:57 | Diagnostic Imaging Report ---
Indication:Abdominal pain Technique: Grayscale and duplex Doppler imaging of the abdomen performed. Comparison: 02/27/2018 and 07/11/2017 Findings: Liver again noted to display a coarsened heterogeneous echotexture. There is equivocal surface nodularity. No focal hepatic mass lesion is appreciated sonographically. Portal vein appears patent with hepatopedal flow. The gallbladder is not visualized and likely surgically absent. No intrahepatic biliary ductal dilatation is identified. Common bile duct measures 7 mm diameter, likely related to postcholecystectomy state. Pancreas is obscured by overlying bowel gas and poorly evaluated. Imaged portions of the aorta normal in caliber. Kidneys demonstrate normal echogenicity. There is no hydronephrosis or sonographically appreciable renal stone. Spleen measures within the upper limits for normal size. No ascites is demonstrated. IMPRESSION: Suspected chronic liver disease manifested by heterogeneous, coarsened hepatic echotexture and probable surface nodularity, findings which have been reported previously. No focal hepatic mass lesion identified sonographically. Borderline splenomegaly. Status post cholecystectomy
== END 2018-09-23 11:15 | disposition home or self-care (01) ==
LOC: ULS 09:15
DX: K74.60 Unspecified cirrhosis of liver (principal); E11.9 Type 2 diabetes mellitus without complications; E66.9 Obesity, unspecified; Z90.49 Acquired absence of other specified parts of digestive tract
CPT/HCPCS: 36415; 76700; 80053; 80061; 82105; 82140; 82248; 82306; 82607; 82746; 83036; 83735; 84100; 84153; 84443; 85007; 85025

== ENCOUNTER 2019-06-17 14:36 | Outpatient (CLI) | payer MEDICARE ==
--- NOTE | 2019-06-17 14:59 | General Progress Note ---
Assessment/Plan Problem List: (1) Vitatmin D deficiency (2) Varices of esophagus determined by endoscopy ICD Codes: I85.00 - Esophageal varices without bleeding SNOMED: 62335329, 177255237 (3) H/O ETOH abuse ICD Codes: F10.10 - H/O ETOH abuse SNOMED: 651674360 (4) Diabetes mellitus, type II ICD Codes: E11.9 - Type 2 diabetes mellitus without complications SNOMED: 93832110 (5) Cirrhosis ICD Codes: K74.60 - Cirrhosis SNOMED: 88245740 (6) Cholelithiasis ICD Codes: K80.20 - Calculus of gallbladder without cholecystitis without obstruction SNOMED: 061518288 (7) Ascites ICD Codes: R18.8 - Ascites SNOMED: 289241588 Assessment/Plan: Assessment/Plan last colon 10/2017 last EGD 06/2017 needs abd us and EGD labs plan on procedure day Subjective ROS Limited/Unobtainable: Yes Allergies: Coded Allergies: No Known Allergies (Unverified , 10/20/12) Objective General Appearance: alert EENT: normal ENT inspection Neck: supple Cardiovascular: normal rate Respiratory/Chest: decreased breath sounds Abdomen: normal bowel sounds, non tender, soft Extremities: non-tender Flex Mendez MD Jun 17, 2019 14:59
[2019-06-17 15:39] VITALS: BP 141/87
== END 2019-06-17 16:36 | disposition home or self-care (01) ==
LOC: PAN 14:36
DX: R18.8 Other ascites (principal); K80.20 Calculus of gallbladder without cholecystitis without obstruction; K74.60 Unspecified cirrhosis of liver; E11.9 Type 2 diabetes mellitus without complications; F10.10 Alcohol abuse, uncomplicated; I85.00 Esophageal varices without bleeding
CPT/HCPCS: 99212

== ENCOUNTER 2019-06-21 09:18 | Day surgery (SDC) | payer MEDICARE ==
[~2019-06-21] VITALS: Ht 165.1 cm; Wt 79.4 kg
[2019-06-21] VITALS (7 sets, daily range): BP systolic 116–140; BP diastolic 71–92
[~2019-06-21 09:18] MED LIST changes: +LR 1000ml 1,000 ML IVLG SCH
[2019-06-21] MEDS ORDERED: Midazolam 2mg/2ml Inj ONE (09:19)
--- NOTE | 2019-06-21 09:49 | Pre-Procedure Note/Attestation ---
Pre-Procedure Note/Attestation Complete Prior to Procedure Planned Procedure: not applicable Procedure Narrative: egd Indications for Procedure Pre-Operative Diagnosis: cirrhosis Attestation I attest that I discussed the nature of the procedure; its benefits; risks and complications; and alternatives (and the risks and benefits of such alternatives ), prior to the procedure, with the patient (or the patient's legal self pay representative). I attest that, if there was a reasonable possibility of needing a blood transfusion, the patient (or the patient's legal self pay representative) was given the [facility] standardized written summary, pursuant to the [place] Blood Safety Act ([place] Health and Safety Code # 1645, as amended). I attest that I re-evaluated the patient just prior to the surgery and that there has been no change in the patient's H&P, except as documented below: Flex Mendez MD Jun 21, 2019 09:49
--- NOTE | 2019-06-21 10:43 | Short Stay Surgery H&P ---
History of Present Illness History of Present Illness Chief Complaint cirrhosis FERNANDO Rendon is a 59 year old male who was admitted on for Cirrohsis Patient History Allergies: Coded Allergies: No Known Allergies (Unverified , 10/20/12) PAST MEDICAL HISTORY: (1) Vitatmin D deficiency (2) Varices of esophagus determined by endoscopy (3) H/O ETOH abuse (4) Diabetes mellitus, type II (5) Cirrhosis (6) Ascites (7) Cholelithiasis Medication History Scheduled Rifaximin* (Xifaxan*), 550 MG ORAL TWICE A DAY, (Reported) Sitagliptin Phos/Metformin Hcl (Janumet 50-1,000 Mg Tablet), 1 TAB ORAL TWICE A DAY, (Reported) Scheduled PRN Lactulose (Lactulose*), 30 ML ORAL BID PRN for Constipation, (Reported) Review of Systems Cardiovascular: Reports: no symptoms Respiratory: Reports: no symptoms Skeletal: Reports: no symptoms Gastrointestinal: Reports: no symptoms Genitourinary: Reports: no symptoms Neurologic: Reports: no symptoms Endocrine: Reports: no symptoms Hematologic: Reports: no symptoms Physical Exam Vital Signs Last Vital Signs Date Time Temp Pulse Resp B/P (MAP) Pulse Ox O2 Delivery O2 Flow Rate FiO2 06/21/19 10:19 Room Air 06/21/19 10:09 97.3 76 18 140/92 99 Skin: normal HENT: normal Heart: normal Lungs: normal Abdomen: normal Extremities: normal Plan Plan of Care egd Attestation Are the patient's medical conditions optimized for surgery? Attestation Response: yes Flex Mendez MD Jun 21, 2019 10:43
--- NOTE | 2019-06-21 10:57 | Endoscopy Procedure Note ---
Endoscopy Procedure Note General Indication for Procedure: cirrhosis Procedures Performed: EGD Operative Findings/Diagnosis: gastritis Specimen: yes Pt Tolerated Procedure Well: Yes Estimated Blood Loss: none Anesthesia Anesthesiologist: natalia Anesthesia: MAC Inserted Devices Implant(s) used?: No GI Core Measures 50 yrs or older w/o bx or poly: Not Applicable 10yrs. F/U recommended: Not Applicable Flex Mendez MD Jun 21, 2019 10:57
[2019-06-21 10:58] LABS: HEMATOCRIT 44.2 % (42.0-52.0); MEAN CORPUSCULAR VOLUME 101 FL (80-99); PLATELET COUNT 116 K/UL (150-450); RED BLOOD COUNT 4.38 M/UL (4.70-6.10); RED CELL DISTRIBUTION WIDTH 10.5 % (11.6-14.8); WHITE BLOOD COUNT 2.9 K/UL (4.8-10.8)
[2019-06-21] MEDS ORDERED: Propofol 200mg/20ml IV ONE (11:00)
[2019-06-21] MEDS ORDERED: LR 1000ml ONE (11:00)
[2019-06-21 11:08] LABS: ANION GAP 10 mmol/L (5-15); BLOOD UREA NITROGEN 5 mg/dL (7-18); CARBON DIOXIDE 25 MMOL/L (21-32); CHLORIDE 104 MMOL/L (98-107); CREATININE 0.7 MG/DL (0.55-1.30); SODIUM 139 MMOL/L (136-145)
[2019-06-21 11:16] LABS: ALANINE AMINOTRANSFERASE 38 U/L (12-78); ALBUMIN 3.6 G/DL (3.4-5.0); ALBUMIN/GLOBULIN RATIO 0.8 (1.0-2.7); ALKALINE PHOSPHATASE 67 U/L (46-116); ASPARTATE AMINO TRANSFERASE 40 U/L (15-37); BILIRUBIN,TOTAL 0.5 MG/DL (0.2-1.0)
--- NOTE | 2019-06-21 17:00 | Procedure Note ---
DATE OF PROCEDURE: 06/21/2019 SURGEON: Flex Mendez M.D. PROCEDURE: Upper endoscopy with biopsy. ANESTHESIA: Per Dr. Benavidez. INSTRUMENT: Olympus adult flexible upper endoscope. INDICATION: History of cirrhosis, follow up for varices. REASON FOR PROCEDURE: The procedure, risks, benefits, and possible consequences, including hemorrhage, aspiration, perforation and infection, and alternative treatments, were explained to the patient/legal guardian by Dr. Flex Mendez and the patient/legal guardian understood and accepted these risks. DESCRIPTION OF PROCEDURE: After informed consent was obtained and the patient was adequately sedated, Olympus upper endoscope was advanced from mouth into the second portion of the duodenum and retroflexion was performed in the stomach. The patient had evidence of distal esophagitis, mild to moderate. No obvious large varices seen at this time. No active bleeding. No stigmata. In the stomach, there was evidence of diffuse gastritis. Random biopsy from antrum was obtained to rule out H. pylori infection. On retroflexion, there was evidence of small hiatal hernia. No evidence of any gastric varices. The patient tolerated procedure very well without complication. SUMMARY OF FINDINGS: 1. Distal esophagitis. 2. No obvious gastric, no esophageal varices at this time. 3. Gastritis, status post biopsy. 4. Hiatal hernia. RECOMMENDATIONS: Follow up biopsy results and treat accordingly. Flex Mendez M.D. DR: Inderjit JOB#: [id number] CC: LIZZIE
== END 2019-06-21 12:30 | disposition home or self-care (01) ==
LOC: GAS 09:18
DX: K74.60 Unspecified cirrhosis of liver (principal); K29.70 Gastritis, unspecified, without bleeding; K44.9 Diaphragmatic hernia without obstruction or gangrene; E11.9 Type 2 diabetes mellitus without complications; K20.9 Esophagitis, unspecified
CPT/HCPCS: 36415; 43239; 80053; 82105; 82962; 85007; 85025; 85610; 85730; 93005; J2250; J2704; J7120; 94003; 94150

== ENCOUNTER 2019-06-21 09:55 | Outpatient (CLI) | payer MEDICARE ==
[~2019-06-21 09:55] MED LIST changes: -LR 1000ml 1,000 ML IVLG SCH
--- NOTE | 2019-06-21 10:35 | Anethesia Preoperative Eval ---
Anesthesia Pre-op PMH/ROS General Date of Evaluation: Jun 21, 2019 Time of Evaluation: 10:31 Anesthesiologist: Pramod ASA Score: ASA 3 Mallampati Score Class I : Soft palate, uvula, fauces, pillars visible Class II: Soft palate, uvula, fauces visible Class III: Soft palate, base of uvula visible Class IV: Only hard plate visible Mallampati Classification: Class II Surgeon: Vanessa Allergies: Coded Allergies: No Known Allergies (Unverified , 10/20/12) Medications: see eMAR Patient NPO?: Yes Past Medical History Cardiovascular: Denies: HTN, CAD, [place], valve dz, arrhythmia, other Pulmonary: Denies: asthma, COPD, AV, other Gastrointestinal/Genitourinary: Reports: GERD, other - Liver cirrosis Neurologic/Psychiatric: Reports: depression/anxiety; Denies: dementia, CVA, TIA, other Endocrine: Reports: DM; Denies: hypothyroidism, steroids, other HEENT: Denies: cataract (L), cataract (R), glaucoma, [place] (L[place] (R), other Hematology/Immune: Reports: anemia - mild; Denies: DVT, bleeding disorder, other Musculoskeletal/Integumentary: Denies: OA, RA, DJD, DDD, edema, other PMH Narrative: as above PSxH Narrative: Ex laparotomy, cholecystectomy Anesthesia Pre-op Phys. Exam Physician Exam Constitutional: NAD Neurologic: CN 2-12 intact Cardiovascular: RRR, no M/R/G Respiratory: CTA Gastrointestinal: S/NT/ND Airway Exam Mallampati Score: Class II MO: full Neck: flexible ROM: full Teeth: missing Dentures: no upper, no lower Anesthesia Pre-op A/P Risk Assessment & Plan Assessment: ASA 3 Plan: Giovany Arroyo MD Jun 21, 2019 10:35
[2019-06-21 11:14] VITALS: BP 118/72
--- NOTE | 2019-06-21 11:14 | Immediate Post-Op Evaluation ---
Immediate Post-Op Evalulation Immediate Post-Op Evalulation Procedure: EGD with Bx Date of Evaluation: Jun 21, 2019 Time of Evaluation: 11:14 IV Fluids: 300 Blood Products: none Estimated Blood Loss: none Urinary Output: none Blood Pressure Systolic: 118 Blood Pressure Diastolic: 72 Pulse Rate: 74 Respiratory Rate: 20 O2 Sat by Pulse Oximetry: 98 Temperature (Fahrenheit): 97.5 Pain Score (1-10): 1 Nausea: No Vomiting: No Complications none Patient Status: awake, patent, none Giovany Benavidez MD Jun 21, 2019 11:14
--- NOTE | 2019-06-21 16:55 | Diagnostic Imaging Report ---
Indication: Abdominal pain Technique: Grayscale and duplex Doppler imaging of the abdomen performed. Comparison: None Findings: The liver is heterogeneous with surface nodularity. Doppler interrogation of the main portal vein shows patency with hepatopedal, monophasic flow. There is no biliary ductal dilatation identified. Gallbladder is absent. CBD is 5 mm in diameter. There demonstrated part of the pancreas, aorta and IVC show no definite abnormalities. Both kidneys appear unremarkable. There is no hydronephrosis. IMPRESSION: Suspected chronic liver disease. Status post cholecystectomy
== END 2019-06-21 11:55 | disposition home or self-care (01) ==
LOC: ULS 09:55
DX: R10.9 Unspecified abdominal pain (principal); Z90.49 Acquired absence of other specified parts of digestive tract; K21.9 Gastro-esophageal reflux disease without esophagitis; E11.9 Type 2 diabetes mellitus without complications; K74.60 Unspecified cirrhosis of liver; D64.9 Anemia, unspecified; F32.9 Major depressive disorder, single episode, unspecified; F41.9 Anxiety disorder, unspecified
CPT/HCPCS: 76700

== ENCOUNTER 2019-07-06 10:55 | Outpatient (CLI) | payer MEDICARE ==
[2019-07-06 11:00] VITALS: BP 131/89
--- NOTE | 2019-07-06 13:35 | General Progress Note ---
Assessment/Plan Assessment/Plan: Assessment/Plan Problem List: (1) Vitatmin D deficiency (2) Varices of esophagus determined by endoscopy ICD Codes: I85.00 - Esophageal varices without bleeding SNOMED: 62158925, 228959494 (3) H/O ETOH abuse ICD Codes: F10.10 - H/O ETOH abuse SNOMED: 792178085 (4) Diabetes mellitus, type II ICD Codes: E11.9 - Type 2 diabetes mellitus without complications SNOMED: 16956143 (5) Cirrhosis ICD Codes: K74.60 - Cirrhosis SNOMED: 16048616 (6) Cholelithiasis ICD Codes: K80.20 - Calculus of gallbladder without cholecystitis without obstruction SNOMED: 739209095 (7) Ascites Assessment/Plan: Assessment/Plan last colon 10/2017 s/p EGD labs reviewed dc lactulose and xifaxan fu in 3 months Subjective ROS Limited/Unobtainable: Yes Allergies: Coded Allergies: No Known Allergies (Unverified , 10/20/12) Objective General Appearance: alert EENT: normal ENT inspection Neck: supple Cardiovascular: normal rate Respiratory/Chest: lungs clear Abdomen: normal bowel sounds, non tender, soft Extremities: non-tender Flex Mendez MD Jul 06, 2019 13:35
== END 2019-07-06 13:35 | disposition home or self-care (01) ==
LOC: PAN 10:55
DX: K74.60 Unspecified cirrhosis of liver (principal); K80.20 Calculus of gallbladder without cholecystitis without obstruction; R18.8 Other ascites; E11.9 Type 2 diabetes mellitus without complications; F10.10 Alcohol abuse, uncomplicated; E55.9 Vitamin D deficiency, unspecified; I85.00 Esophageal varices without bleeding
CPT/HCPCS: 99212

== ENCOUNTER 2019-10-06 11:30 | Outpatient (CLI) | payer MEDICARE ==
--- NOTE | 2019-10-06 11:41 | General Progress Note ---
Assessment/Plan Assessment/Plan: Assessment/Plan Assessment/Plan: Assessment/Plan Problem List: (1) Vitatmin D deficiency (2) Varices of esophagus determined by endoscopy ICD Codes: I85.00 - Esophageal varices without bleeding SNOMED: 75964927, 277391447 (3) H/O ETOH abuse ICD Codes: F10.10 - H/O ETOH abuse SNOMED: 007174175 (4) Diabetes mellitus, type II ICD Codes: E11.9 - Type 2 diabetes mellitus without complications SNOMED: 39528103 (5) Cirrhosis ICD Codes: K74.60 - Cirrhosis SNOMED: 39984050 (6) Cholelithiasis ICD Codes: K80.20 - Calculus of gallbladder without cholecystitis without obstruction SNOMED: 850979388 (7) Ascites Assessment/Plan: Assessment/Plan last colon 10/2017 s/p EGD 06/2019 labs reviewed off lactulose and xifaxan last 07/2019>>> next one due in December fu in 3 months Subjective ROS Limited/Unobtainable: Yes Allergies: Coded Allergies: No Known Allergies (Unverified , 10/20/12) Objective General Appearance: alert EENT: normal ENT inspection Neck: supple Cardiovascular: normal rate Respiratory/Chest: decreased breath sounds Abdomen: normal bowel sounds, non tender, soft Extremities: non-tender Flex Mendez MD October 06, 2019 11:41
== END 2019-10-06 14:49 | disposition home or self-care (01) ==
LOC: PAN 11:30
DX: K74.60 Unspecified cirrhosis of liver (principal); K80.20 Calculus of gallbladder without cholecystitis without obstruction; R18.8 Other ascites; E11.9 Type 2 diabetes mellitus without complications; F10.10 Alcohol abuse, uncomplicated; I85.00 Esophageal varices without bleeding; E55.9 Vitamin D deficiency, unspecified

== ENCOUNTER → 2020-01-03 | Outpatient (CLI) | payer MEDICARE ==
--- NOTE | 2020-01-03 10:13 | Diagnostic Imaging Report ---
Indication: Abdominal pain Technique: Solorio-scale and duplex images of the upper abdomen were obtained Comparison: 06/21/2019 Findings: Gallbladder has been removed Common bile duct measures 7 mm in diameter. No intrahepatic biliary ductal dilatation. Liver demonstrates coarsened echogenicity and surface nodularity. Portal vein and hepatic veins are patent. Pancreas is obscured by bowel gas. Spleen is unremarkable. Left kidney measures 11.4 cm in length. Right kidney measures 10 cm length. Both kidneys demonstrate normal echogenicity. There is no hydronephrosis. No focal abnormality . Non-aneurysmal abdominal aorta . Impression: Coarsened hepatic echogenicity and surface nodularity, indicative of cirrhosis, also previously described. No focal abnormality. Cholecystectomy. Borderline dilated common bile duct, probably related to postcholecystectomy state Note inability to visualize the pancreas
== END | disposition home or self-care (01) ==
LOC: ULS 08:07
DX: R10.9 Unspecified abdominal pain (principal); Z90.49 Acquired absence of other specified parts of digestive tract
CPT/HCPCS: 76700

== ENCOUNTER 2020-03-29 15:00 | Outpatient (CLI) | payer MEDICARE ==
--- NOTE | 2020-03-29 15:31 | General Progress Note ---
Subjective ROS Limited/Unobtainable: Yes Allergies: Coded Allergies: No Known Allergies (Unverified , 10/20/12) Objective General Appearance: alert EENT: normal ENT inspection Neck: supple Cardiovascular: normal rate Respiratory/Chest: decreased breath sounds Abdomen: normal bowel sounds, non tender, soft Extremities: non-tender Assessment/Plan Assessment/Plan: Assessment/Plan Problem List: (1) Vitatmin D deficiency (2) Varices of esophagus determined by endoscopy ICD Codes: I85.00 - Esophageal varices without bleeding SNOMED: 83947060, 735607170 (3) H/O ETOH abuse ICD Codes: F10.10 - H/O ETOH abuse SNOMED: 116057762 (4) Diabetes mellitus, type II ICD Codes: E11.9 - Type 2 diabetes mellitus without complications SNOMED: 20905582 (5) Cirrhosis ICD Codes: K74.60 - Cirrhosis SNOMED: 58830226 (6) Cholelithiasis ICD Codes: K80.20 - Calculus of gallbladder without cholecystitis without obstruction SNOMED: 569402809 (7) Ascites Assessment/Plan: Assessment/Plan last colon 10/2017 s/p EGD 06/2019 labs reviewed off lactulose and xifaxan last us 10/2019>>> next one ordered today fu in 3 months Flex Mendez MD Mar 29, 2020 15:31
== END 2020-03-29 17:00 | disposition home or self-care (01) ==
LOC: PAN 15:00
DX: E55.9 Vitamin D deficiency, unspecified (principal); I85.00 Esophageal varices without bleeding; F10.10 Alcohol abuse, uncomplicated; E11.9 Type 2 diabetes mellitus without complications; K74.60 Unspecified cirrhosis of liver; K80.20 Calculus of gallbladder without cholecystitis without obstruction; R18.8 Other ascites
CPT/HCPCS: 99212

== ENCOUNTER → 2020-04-18 | Outpatient (CLI) | payer MEDICARE ==
--- NOTE | 2020-04-18 16:02 | Diagnostic Imaging Report ---
Indication: Abdominal pain Technique: Solorio-scale and duplex images of the upper abdomen were obtained Comparison: none Findings: Gallbladder this has been removed. However, small amount of fluid and shadowing structures are seen within the gallbladder fossa, most likely reflecting gas and fluid filled duodenum. Shadowing may also be from surgical clips. Sonographic Pacheco's sign is negative. Common bile duct measures locked for mm in diameter. No intrahepatic biliary ductal dilatation. Liver demonstrates surface nodularity and coarsened echogenicity. Portal vein and hepatic veins are patent. Pancreas is incompletely visualized due to overlying bowel gas, visualized portions are unremarkable. Spleen is unremarkable. Left kidney measures 11.5 cm in length. Right kidney measures 11 cm length. Both kidneys demonstrate normal echogenicity. There is no hydronephrosis. No focal abnormality . Abdominal aorta is partially obscured by bowel gas, visualized portions are non-aneurysmal . Impression: Coarsened hepatic echogenicity and hepatic surface nodularity indicating likely cirrhotic changes. Surgically absent gallbladder. Negative for dilated bile ducts Incomplete visualization of the pancreas and abdominal aorta
== END | disposition home or self-care (01) ==
LOC: ULS 13:16
DX: R10.9 Unspecified abdominal pain (principal); Z90.49 Acquired absence of other specified parts of digestive tract; K74.60 Unspecified cirrhosis of liver
CPT/HCPCS: 76700